=== PATIENT | female | born 1950 | race Caucasian/White ===

== ENCOUNTER 2019-06-23 11:51 | Outpatient (CLI) | payer MEDICARE, SELFPAY ==
--- NOTE | ~2019-06-23 | NM_ITS ---
EXAMINATION: NM parathyroid imaging w spect DATE: 06/23/2019 15:47 INDICATION: Endocrine disorder, unspecified. TECHNIQUE: 19.6 mCi Tc99m sestamibi was administered intravenously. Anterior images of the neck were obtained immediately and at 2 hours. SPECT images of the neck were obtained. COMPARISON: Parathyroid scintigraphy 12/11/2016 FINDINGS: There is no focus of persistent activity in the area of the thyroid or mediastinum to sugge st parathyroid adenoma. IMPRESSION: 1. No evidence of a parathyroid adenoma. Reviewed, dictated and finalized at location A. ER DOWN
== END 2019-06-23 11:52 | disposition home or self-care (01) ==
LOC: ANHIMG 12:01
PROVIDERS: PCP Family Medicine; Visit Provider Family Medicine
DX: E34.9 Endocrine disorder, unspecified (principal)
CPT/HCPCS: 78071; A9500

== ENCOUNTER 2019-11-17 12:47 | Outpatient (CLI) | payer MEDICARE, SELFPAY ==
[2019-11-17 13:17] LABS: Basophils Percent Auto 0.5 % (0.2-1.2); Eosinophils Absolute Auto 0.3 K/mm3 (0-0.3); Eosinophils Percent Auto 3.2 % (0-4.4); Hematocrit 41.2 % (37.0-47.0); Hemoglobin 13.1 g/dL (12.0-15.0); Immature Granulocyte Absolute 0.02 K/mm3 (0.00-0.031); Immature Granulocyte Percent A 0.3 % (0-0.5); Lymphocytes Absolute Auto 1.89 K/mm3 (0.9-3.2); Lymphocytes Percent Auto 23.8 % (18.3-44.2); Mean Corpuscular HGB Conc 31.8 g/dl (32-36); Mean Corpuscular Hemoglobin 29.5 pg (26-34); Mean Corpuscular Volume 92.8 fl (80-100); Mean Platelet Volume 8.4 fl (7.4-10.4); Monocytes Absolute Auto 0.7 K/mm3 (0.1-0.6); Monocytes Percent Auto 9.2 % (2.6-8.5); Platelet Count Result 160 k/mm3 (150-375); Red Blood Count 4.44 M/mm3 (4.2-5.4); Red Cell Distribution Width 12.4 % (11.5-14.5); White Blood Count 7.9 K/mm3 (4.5-10.0)
[2019-11-17 14:54] LABS: Alanine Aminotransferase 29 U/L (4-35); Albumin Level 4.5 g/dL (3.5-5.1); Alkaline Phosphatase 133 U/L (38-126); Aspartate Amino Transferase 28 U/L (14-36); Bilirubin,Total 0.6 mg/dL (0.2-1.3); Blood Urea Nitrogen 28 mg/dL (7-17); Calcium 10.4 mg/dL (8.4-10.2); Carbon Dioxide 27 mmol/L (22-30); Chloride 102 mmol/L (98-107); Estimated Glomerular Filt Rate 49; Glucose 88 mg/dL (65-105); Potassium 4.4 mmol/L (3.4-5.0); Sodium 138 mmol/L (137-145)
[2019-11-17 15:05] LABS: Parathyroid Intact 128.2 pg/mL (7.5-53.5)
== END 2019-11-17 12:48 | disposition home or self-care (01) ==
LOC: ANHLAB 13:05
PROVIDERS: PCP Family Medicine; Visit Provider Internal Medicine Hematology & Oncology
DX: E83.52 Hypercalcemia (principal)
CPT/HCPCS: 36415; 80053; 83970; 85025

== ENCOUNTER 2020-09-14 14:39 | Outpatient (CLI) | payer MEDICARE, SELFPAY ==
--- NOTE | ~2020-09-14 | MM_ITS ---
EXAMINATION: MM screening isabela LT w jenise HISTORY: Screening TECHNIQUE: Craniocaudal and mediolateral oblique 3-D tomosynthesis images were obtained and synthetic 2-D images were generated. CAD analysis was submitted and interpreted. COMPARISON: Comparison to multiple prior studies sequentially, with oldest reviewed study dated 02/11. BREAST PARENCHYMAL COMPOSITION: There are scattered areas of fibroglandular density. FINDINGS: There is no evidence of suspicious mass, calcification, or architectural distortion to sugg est malignancy in the left breast. There has been no suspicious interval change. IMPRESSION: 1. No mammographic evidence of malignancy. 2. Recommend routine screening mammography in one year. BI-RADS Category 1: Negative Reviewed, dictated and finalized at location A.
== END 2020-09-14 14:40 | disposition home or self-care (01) ==
PROVIDERS: PCP Family Medicine; Visit Provider Family Medicine
DX: Z12.31 Encounter for screening mammogram for malignant neoplasm of breast (principal)
CPT/HCPCS: 77063; 77067

== ENCOUNTER 2020-11-20 12:31 | Emergency (ER) | payer MEDICARE, SELFPAY ==
[2020-11-20 12:47] VITALS: BP 157/94; PULSE 89; RESP 16; TEMP 37.1; O2SAT 99
--- NOTE | 2020-11-20 13:01 | ED.SKABFB ---
HPI - Skin/Abscess/Foreign Bdy General Chief complaint: Wound/Laceration Stated complaint: Laceration on left thumb Time Seen by Provider: 11/20/20 12:55 Source: patient and RN notes reviewed Mode of arrival: ambulatory Limitations: no limitations History of Present Illness HPI narrative: Patient presents today with a laceration to her left thumb that was sustained approximately 30 minutes prior to arrival while she was cutting a watermelon. Denies numbness or tingling. She has tried no [id number] interventions prior to arrival. She is not up-to-date on her tetanus vaccine. complaint: laceration Related Data Home Medications Medication Instructions Recorded Confirmed aspirin 81 mg tablet,delayed 81 mg PO DAILY 06/11/19 11/20/20 release atorvastatin 40 mg tablet 80 mg PO DAILY 06/11/19 11/20/20 famotidine 20 mg tablet 20 mg PO BID tablet 06/11/19 11/20/20 metoprolol succinate 50 mg 50 mg PO DAILY 06/11/19 11/20/20 tablet,extended release 24 hr Allergies Allergy/AdvReac Type Severity Reaction Status Date / Time red dye Allergy Intermediate Unknown Verified 11/20/20 13:15 strawberry Allergy Mild Unknown Verified 11/20/20 13:15 heparin Allergy Other Verified 11/20/20 14:19 Review of Systems Review of Systems: Narrative: CONSTITUTIONAL: Denies body aches, fever, chills, or sweats. EYES: Denies visual changes, redness, or discharge. ENT: Denies rhinorrhea, congestion, sore throat, or otalgia. CARDIOVASCULAR: Denies chest pain, palpitations, or edema. RESPIRATORY: Denies cough or dyspnea. GASTROINTESTINAL: Denies abdominal pain, nausea, vomiting, or diarrhea. GENITOURINARY: Denies dysuria or hematuria. SKIN: Denies rash, itching, or wounds.+Laceration to left thumb. MUSCULOSKELETAL: Denies back pain, joint pain, or myalgia. NEUROLOGIC: Denies headache, numbness, tingling, or weakness. PSYCH: Denies depression or anxiety. [facility] Past Medical History Medical History (Updated 11/20/20 @ 13:24 by Mary Groves, BLANKET MAKER, ) Atherosclerosis of coronary artery bypass graft of [place] heart without angina pectoris Atrial fibrillation BMI 45.0-49.9, adult Chronic kidney disease, stage 3 (moderate) Diastolic dysfunction Elevated parathyroid hormone Essential (primary) hypertension History of breast cancer Hypercalcemia Iron deficiency anemia due to chronic blood loss Obstructive sleep apnea (adult) (pediatric) Vitamin D deficiency Surgical History Surgical History (Updated 11/20/20 @ 13:03 by Mary Groves, BLANKET MAKER, ) History of right mastectomy S/P AVR (aortic valve replacement) Family History Family History Father Family history of premature coronary heart disease Hypertension Family history of pancreatic cancer Sibling Family history of coronary artery disease Acute myocardial infarction Mother Family history of coronary artery disease Other Cerebrovascular accident Depression Diabetes mellitus Family history of Alzheimer's disease Family history of arthritis Family history of malignant neoplasm Family history of obesity Family history of seizure disorder Social History Social History Second hand tobacco smoke exposure: No Alcohol intake: never Comments At time of signature, I have reviewed and agree with nursing past medical, surgical, social and family history unless otherwise noted. Please see nursing chart for further information. There is no relevant family history pertinent to the presenting complaint Exam Narrative: Exam Narrative: GENERAL: Well-appearing, well-nourished, and in no acute distress. HEAD: Normocephalic, atraumatic. EYES: EOMI. No redness or drainage. Conjunctivae normal. ENT: Mucous membranes pink and moist. NECK: Normal AROM. CHEST: No respiratory distress. EXTREMITIES: Normal rang
[2020-11-20] MEDS: TETANUS/DIPHTHERIA TOXOIDS ADSORB 0.5 ML VIAL (*BKC) IM (13:03)
== END 2020-11-20 13:32 | disposition home or self-care (01) ==
PROVIDERS: Emergency Provider Nurse Practitioner; PCP Family Medicine
DX: S61.012A Laceration without foreign body of left thumb without damage to nail, initial encounter (principal); W45.8XXA Other foreign body or object entering through skin, initial encounter; Z23 Encounter for immunization; I48.91 Unspecified atrial fibrillation; I13.10 Hypertensive heart and chronic kidney disease without heart failure, with stage 1 through stage 4 chronic kidney disease, or unspecified chronic kidney disease; N18.30 Chronic kidney disease, stage 3 unspecified; I25.110 Atherosclerotic heart disease of native coronary artery with unstable angina pectoris; Z85.3 Personal history of malignant neoplasm of breast; D50.9 Iron deficiency anemia, unspecified; G47.33 Obstructive sleep apnea (adult) (pediatric)
CPT/HCPCS: 12001; 90471; 90714; 99212; G0463

== ENCOUNTER 2022-02-20 09:02 | Outpatient (CLI) | payer MEDICARE, SELFPAY ==
--- NOTE | ~2022-02-20 | MM_ITS ---
EXAMINATION: MM screening isabela LT w jenise HISTORY: Screening TECHNIQUE: Craniocaudal and mediolateral oblique 3-D tomosynthesis images were obtained and synthetic 2-D images were generated. CAD analysis was submitted and interpreted. COMPARISON: Comparison to multiple prior studies sequentially, with oldest reviewed study dated 08/2014. BREAST PARENCHYMAL COMPOSITION: The breasts are almost entirely fatty. FINDINGS: There is no evidence of suspicious mass, calcification, or architectural distortion to sugg est malignancy in the left breast. There has been no suspicious interval change. IMPRESSION: 1. No mammographic evidence of malignancy. 2. Recommend routine screening mammography in one year. BI-RADS Category 1: Negative Reviewed, dictated and finalized at location A.
== END 2022-02-20 09:03 | disposition home or self-care (01) ==
LOC: ANHIMG 09:05
PROVIDERS: PCP Family Medicine; Visit Provider Nurse Practitioner Family
DX: Z12.31 Encounter for screening mammogram for malignant neoplasm of breast (principal)
CPT/HCPCS: 77063; 77067

== ENCOUNTER 2022-06-27 10:49 | Emergency (ER) | payer MEDICARE, SELFPAY ==
--- NOTE | ~2022-06-27 | CT_ITS ---
EXAMINATION: CT brain wo con DATE: 06/27/2022 12:04 INDICATION: Head injury. TECHNIQUE: Computed tomography (CT) of the head was performed without intravenous contrast. The mA wa s adjusted according to patient size. Iterative reconstruction technique was employed. The dose-lengt h product was 605.33 mGy-cm. COMPARISON: Head CT 12/09/2018 FINDINGS: There are scattered areas of low attenuation in the cerebral white matter. There is no intr acranial hemorrhage, acute infarction, or abnormal intracranial mass lesion. The ventricles are santiago l in size. There are likely changes of ocular lens replacement surgeries. There is mild mucosal thick ening in the paranasal sinuses. The mastoid air cells are normal. There is right periorbital soft tis jameson swelling. IMPRESSION: 1. Stable extensive nonspecific cerebral white matter disease, which likely represents chronic small vessel ischemic disease. Reviewed, dictated and finalized at location A. HER HAND IMPRESSION: 1. Stable extensive nonspecific cerebral white matter disease, which likely rep resents chronic small vessel ischemic disease.
--- NOTE | ~2022-06-27 | CT_ITS ---
EXAMINATION: CT facial & cervical spine wo DATE: 06/27/2022 12:04 INDICATION: Head injury. TECHNIQUE: Computed tomography (CT) of the maxillofacial region and cervical spine was performed with out intravenous contrast. Automated exposure control and iterative reconstruction technique were empl oyed. The dose-length product was 496.81 mGy-cm. COMPARISON: Maxillofacial CT 12/09/2018 FINDINGS: MAXILLOFACIAL CT: There is right periorbital soft tissue swelling. There are likely changes of ocular lens replacement surgeries. There is leftward deviation of the nasal septum. There are old fractures of the nasal bone s. Material in the external auditory canals is likely cerumen. CERVICAL SPINE CT: There is 6 degrees levocurvature of cervical spine. Vertebral body heights are normal. There is mildl y decreased disc height at C3-C4 and severely decreased disc height from C4-C5 through T1-T2. The fol lowing disc levels are specifically discussed: C2-C3: There is no uncovertebral joint osteoarthritis. There is mild right and moderate left facet junaid int osteoarthritis. There is mild left neural foraminal stenosis. There is no central canal stenosis. C3-C4: There is moderate right and mild left uncovertebral joint osteoarthritis. There is mild right and moderate left facet joint osteoarthritis. There is mild bilateral neural foraminal stenosis. Ther e is mild central canal stenosis. C4-C5: There is severe bilateral uncovertebral joint osteoarthritis. There is mild bilateral facet junaid int osteoarthritis. There is mild right and moderate left neural foraminal stenosis. There is mild ce ntral canal stenosis. C5-C6: There is severe bilateral uncovertebral joint osteoarthritis. There is mild bilateral facet junaid int osteoarthritis. There is mild bilateral neural foraminal stenosis. There is mild central canal st enosis. C6-C7: There is severe bilateral uncovertebral joint osteoarthritis. There is moderate bilateral face t joint osteoarthritis. There is mild bilateral neural foraminal stenosis. There is mild central victorina l stenosis. C7-T1: There is severe bilateral uncovertebral joint osteoarthritis. There is severe bilateral facet joint osteoarthritis. There is mild bilateral neural foraminal stenosis. There is mild central canal stenosis. IMPRESSION: 1. No acute fracture. 2. Severe cervical spondylosis. Reviewed, dictated and finalized at location A. RAL SUPPLY CLERK
[2022-06-27 11:01] VITALS: BP 183/72; PULSE 81; RESP 18; TEMP 36.4; O2SAT 100
--- NOTE | 2022-06-27 11:51 | ED.HEATRA ---
HPI - Head Injury General Chief complaint: Wound/Laceration Stated complaint: fall, head lac Time Seen by Provider: 06/27/22 11:36 Source: patient Mode of arrival: ambulatory Limitations: no limitations History of Present Illness HPI Narrative: This is a 72 year old female that presents to the ER after a head injury today. Reports she had spilled some milk and slipped on it. She fell forward and hit her head. She did not lose consciousness. Reports this happened around 10 this morning. She does have a small laceration over the right temporal region. Reports she is up-to-date on tetanus. Denies any other focal injury or areas of pain. Denies visual changes, vomiting, decreased range of motion or numbness. Related Data Home Medications Medication Instructions Recorded Confirmed aspirin 81 mg tablet,delayed 81 mg PO DAILY 06/11/19 12/15/21 release (Adult Low Dose Aspirin) atorvastatin 40 mg tablet 80 mg PO DAILY 06/11/19 12/15/21 amlodipine 5 mg tablet 5 mg PO DAILY 03/07/21 12/15/21 L.acidoph, paracasei,B. lactis 10 See Rx Instructions PO .QD 12/15/21 12/15/21 billion cell capsule (Digestive Advantage Advanced Probiotic) Allergies Allergy/AdvReac Type Severity Reaction Status Date / Time red dye Allergy Intermediate Unknown Verified 06/27/22 11:32 strawberry Allergy Mild Unknown Verified 06/27/22 11:32 heparin Allergy Other Verified 06/27/22 11:32 Review of Systems Review of Systems: CONSTITUTIONAL: Denies fever EYES: Denies visual changes GASTROINTESTINAL: Denies vomiting SKIN: Reports laceration MUSCULOSKELETAL: Denies back pain, joint pain, or myalgia. NEUROLOGIC: Denies numbness, or weakness. All systems reviewed & are unremarkable except as noted in HPI and below [facility] Past Medical History Medical History (Updated 06/27/22 @ 13:18 by Arielle Mtz PA-C) Atherosclerosis of coronary artery bypass graft of [place] heart without angina pectoris Atrial fibrillation BMI 31.0-31.9,adult BMI 45.0-49.9, adult BMI greater than 40 Chronic kidney disease, stage 3 (moderate) Diastolic dysfunction Elevated parathyroid hormone Essential (primary) hypertension History of breast cancer Hypercalcemia Iron deficiency anemia due to chronic blood loss Laceration of left thumb Need for prophylactic antibiotic Obstructive sleep apnea (adult) (pediatric) Traumatic ecchymosis of left knee Vitamin D deficiency Surgical History Surgical History (Updated 12/15/21 @ 11:44 by Rigoberto Robles MD) Aortic valve replaced History of right mastectomy S/P AVR (aortic valve replacement) Family History Family History Father Family history of premature coronary heart disease Hypertension Family history of pancreatic cancer Sibling Family history of coronary artery disease Acute myocardial infarction Mother Family history of coronary artery disease Sibling Erich syndrome Depression Hypertension Other Cerebrovascular accident Diabetes mellitus Family history of Alzheimer's disease Family history of arthritis Family history of malignant neoplasm Family history of obesity Family history of seizure disorder Social History Social History Smoking status: Never smoker Second hand tobacco smoke exposure: Yes Alcohol intake: current Substance use: never Substance use type: does not use Living arrangements: with family Occupation/Education: retired Additional occupation/education comments: accounting Gender identity (if verbalized by the patient): Female Exam Narrative: GENERAL: Well-appearing, well-nourished, and in no acute distress. HEAD: Normocephalic. 1 cm irregular laceration in the right temporal region that is fairly superficial EYES: PERRLA and EOMI. ENT: Nares clear, no rhinorrhea or epistaxis. Mucous membranes m
== END 2022-06-27 13:47 | disposition home or self-care (01) ==
PROVIDERS: Emergency Provider Physician Assistant; PCP Family Medicine
DX: S01.81XA Laceration without foreign body of other part of head, initial encounter (principal); I25.10 Atherosclerotic heart disease of native coronary artery without angina pectoris; I48.91 Unspecified atrial fibrillation; I12.9 Hypertensive chronic kidney disease with stage 1 through stage 4 chronic kidney disease, or unspecified chronic kidney disease; N18.30 Chronic kidney disease, stage 3 unspecified; E55.9 Vitamin D deficiency, unspecified; G47.33 Obstructive sleep apnea (adult) (pediatric); Z95.2 Presence of prosthetic heart valve; Z90.11 Acquired absence of right breast and nipple; Z85.3 Personal history of malignant neoplasm of breast; R90.82 White matter disease, unspecified; M47.812 Spondylosis without myelopathy or radiculopathy, cervical region; Z79.82 Long term (current) use of aspirin; W01.0XXA Fall on same level from slipping, tripping and stumbling without subsequent striking against object, initial encounter
CPT/HCPCS: 12011; 70450; 70486; 72125; 99284

== ENCOUNTER 2023-03-01 09:24 | Outpatient (CLI) | payer MEDICARE, SELFPAY ==
[2023-03-01 10:20] LABS: Anion Gap 8 mmol/L (8-16); Blood Urea Nitrogen 34 mg/dL (7-17); Calcium 10.6 mg/dL (8.4-10.2); Carbon Dioxide 26 mmol/L (22-30); Chloride 105 mmol/L (98-107); Estimated Glomerular Filt Rate 34; Glucose 93 mg/dL (65-110); Potassium 4.4 mmol/L (3.4-5.0); Sodium 139 mmol/L (137-145)
== END 2023-03-01 09:25 | disposition home or self-care (01) ==
PROVIDERS: PCP Family Medicine; Visit Provider Family Medicine
DX: N18.30 Chronic kidney disease, stage 3 unspecified (principal)
CPT/HCPCS: 36415; 80048

== ENCOUNTER 2023-07-25 09:14 | Outpatient (CLI) | payer MEDICARE, SELFPAY ==
--- NOTE | ~2023-07-25 | MM_ITS ---
EXAMINATION: MM screening isabela LT w jenise HISTORY: Screening mammogram; history of right mastectomy in 2019 TECHNIQUE: Craniocaudal and mediolateral oblique 3-D tomosynthesis images were obtained and synthetic 2-D images were generated. CAD analysis was submitted and interpreted. COMPARISON: 02/20/2022, 09/2020, 05/21/2018 left screening mammogram. BREAST PARENCHYMAL COMPOSITION: There are scattered areas of fibroglandular density. FINDINGS: History of 2020 right mastectomy. Multiple scattered benign calcifications are again presen t. There is no evidence of suspicious mass, calcification, or architectural distortion to suggest mal ignancy in either breast. There has been no suspicious interval change. IMPRESSION: 1. No mammographic evidence of malignancy. 2. Recommend routine screening mammography in one year. BI-RADS Category 2: Benign finding(s). Reviewed, dictated and finalized at location A.
== END 2023-07-25 09:15 | disposition home or self-care (01) ==
LOC: ANHIMG 09:18
PROVIDERS: PCP Family Medicine; Visit Provider Obstetrics & Gynecology
DX: Z12.31 Encounter for screening mammogram for malignant neoplasm of breast (principal)
CPT/HCPCS: 77063; 77067

== ENCOUNTER 2024-08-07 07:58 | Outpatient (CLI) | payer MEDICARE, SELFPAY ==
--- NOTE | ~2024-08-07 | MM_ITS ---
EXAMINATION: MM screening isabela LT w jenise HISTORY: Screening. Personal history of right-sided breast cancer post mastectomy more than 20 years earlier. TECHNIQUE: Craniocaudal and mediolateral oblique 3-D tomosynthesis images were obtained and synthetic 2-D images were generated. CAD analysis was submitted and interpreted. COMPARISON: 07/25/2023 and dating back to 06/05/2019 BREAST PARENCHYMAL COMPOSITION: There are scattered areas of fibroglandular density. FINDINGS: Punctate calcifications are detected bilaterally, stable and benign in appearance. Redemonstration of a intramammary lymph node within the upper outer posterior third of the left breas t. Stable parenchymal pattern without suspicious microcalcifications, architectural distortion or discre te masses. IMPRESSION: 1. No mammographic evidence of malignancy. 2. Recommend routine screening mammography in one year. BI-RADS Category 2: Benign finding(s). Reviewed, dictated and finalized at location A.
== END 2024-08-07 07:59 | disposition home or self-care (01) ==
LOC: ANHIMG 07:59
PROVIDERS: PCP Family Medicine; Visit Provider Obstetrics & Gynecology
DX: Z12.31 Encounter for screening mammogram for malignant neoplasm of breast (principal)
CPT/HCPCS: 77063; 77067

== ENCOUNTER 2024-10-11 09:38 | Outpatient (CLI) | payer MEDICARE, SELFPAY ==
--- NOTE | ~2024-10-11 | US_ITS ---
US renal BI 10/11/2024 10:25 Procedure: Realtime transabdominal ultrasound of the kidneys and bladder. Indication: Chronic kidney disease Comparison: Ultrasound dated 11/06/2013 Findings: There is mild bilateral renal atrophy with increased renal cortical echotexture and decreas ed corticomedullary differentiation, compatible with chronic renal disease. No hydronephrosis or mass identified. The right kidney measures 9.6 cm and left kidney measures 10.1 cm. Bladder within santiago l limits. Impression: 1: Renal atrophy with increased cortical echotexture, consistent with chronic renal disease. Reviewed, dictated and finalized at location A. Impression: 1: Renal atrophy with increased cortical echotexture, consistent with chronic r enal disease.
== END 2024-10-11 09:39 | disposition home or self-care (01) ==
PROVIDERS: PCP Family Medicine; Visit Provider Internal Medicine Nephrology
DX: I12.9 Hypertensive chronic kidney disease with stage 1 through stage 4 chronic kidney disease, or unspecified chronic kidney disease (principal); N18.4 Chronic kidney disease, stage 4 (severe)
CPT/HCPCS: 76775

== ENCOUNTER 2024-12-31 20:21 | Emergency (ER) | payer MEDICARE, SELFPAY ==
[2024-12-31 20:35] VITALS: BP 157/79; PULSE 65; RESP 20; TEMP 36.2; O2SAT 100
--- NOTE | 2024-12-31 21:05 | ED.DENTAL ---
HPI - Dental/Oral General Chief complaint: Dental/Oral Stated complaint: Continued bleeding after 2 teeth extracted Time Seen by Provider: 12/31/24 20:55 Source: patient and family Mode of arrival: ambulatory Limitations: no limitations History of Present Illness HPI Narrative: 34-year-old with history of hypertension , had a dental extraction this afternoon, continues to have bleeding from the socket patient states that she used to the back for short period of time still continued to bleed. She is not on any anticoagulant. Onset (ago): hour(s) (2) Duration: constant Severity: mild Relieving factors: nothing Exacerbating factors: nothing Context: other (Dental extraction) Treatment prior to arrival: none Related Data Home Medications ?Medication ?Instructions ?Recorded ?Confirmed ?Last Taken ?Type aspirin 81 mg tablet,delayed 81 mg PO DAILY 06/11/19 11/27/24 Unknown History release (Adult Low Dose Aspirin) amlodipine 5 mg tablet 5 mg PO DAILY 03/07/21 11/27/24 Unknown History L.acidoph,paracasei,B.animalis 10 See Rx Instructions PO .QD 12/15/21 11/27/24 Unknown History billion cell capsule (Digestive Advantage Advanced Probiotic) ascorbate calcium (vitamin C) 500 500 mg PO DAILY 07/07/22 11/27/24 Unknown History mg tablet metoprolol succinate 50 mg 100 mg PO DAILY 07/10/23 11/27/24 Unknown History tablet,extended release 24 hr (Toprol XL) atorvastatin 80 mg tablet (Lipitor) 80 mg PO DAILY 09/24/24 11/27/24 Unknown History cetirizine 10 mg tablet (24Hour 10 mg PO DAILY PRN 09/24/24 11/27/24 Unknown History Allergy) cholecalciferol (vitamin D3) 50 100 mcg PO DAILY 09/24/24 11/27/24 Unknown History mcg (2,000 unit) capsule Allergies Allergy/AdvReac Type Severity Reaction Status Date / Time ezetimibe (From Zetia) Allergy Intermediate Rash Verified 12/31/24 20:44 red dye Allergy Intermediate Unknown Verified 12/31/24 20:44 strawberry Allergy Mild Unknown Verified 12/31/24 20:44 heparin Allergy Other Verified 12/31/24 20:44 Review of Systems Review of Systems: All systems reviewed & are unremarkable except as noted in HPI and below Constitutional: Constitutional: Reports no additional constitutional complaints Eyes: Eyes: Reports no additional eye complaints ENT: Reports as per HPI Cardiovascular: Cardiovascular: Reports no additional cardiovascular complaints Respiratory: Respiratory: Reports no additional respiratory complaints Musculoskeletal: Musculoskeletal: Reports no additional musculoskeletal complaints Integumentary/Breasts: Skin/Breast: Reports system reviewed and no additional complaints, except as docu [facility] Past Medical History Medical History BMI 50.0-59.9, adult Need for prophylactic antibiotic Hypercalcemia Laceration of left thumb Traumatic ecchymosis of left knee History of breast cancer Atherosclerosis of coronary artery 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 Elevated parathyroid hormone Atrial fibrillation Chronic kidney disease, stage 3 (moderate) Diastolic dysfunction Endometrial cancer Essential (primary) hypertension Iron deficiency anemia due to chronic blood loss Obstructive sleep apnea (adult) (pediatric) Vitamin D deficiency Surgical History Surgical History History of hysteroscopy (02/15/17) Postmenopausal bleeding, Endometrial Hypertrophy - adenocarinoma, endometriod Status post right knee replacement (12/03/13) Delivery by section (~1980) Delivery by section (~1977) H/O bilateral salpingo-oophorectomy (04/10/17) H/O: hysterectomy (04/10/17) endometrioid adenocarcinoma Aortic valve replaced History of right mastectomy (~2000) S/P AVR (aortic valve replacement) Family History Family History Father Family history of premature coronary heart disease Hypertension Family history of pancreatic cancer Sibling Family history of coronary artery disease Acute myocardial infarction Lung cancer Mother Family history of coronary artery disease Sibling Erich syndrome Depression Hypertension Other Cerebrovascular accident Diabetes mellitus Family history of Alzheimer's disease Family history of arthritis Family history of malignant neoplasm Family history of obesity Family history of seizure disorder Social History Social History Smoking status: Never smoker Second hand tobacco smoke exposure: No Alcohol intake: never Substance use: never Substance use type: does not use Do You Feel Safe in your Home?: Yes Lack of Transportation: No Lack of Food: Never True Current Housing: I Have Housing Concerned About Future Housing: No Difficulty Paying Gas/Electric Bills: No Difficulty Paying for Meds: No Currently Unemployed: No Education: High School Diploma/GED Difficulty w/ Childcare or Family Care: No Living arrangements: with family Additional living arrangements comments: Occupation/Education: retired Additional occupation/education comments: accounting Gender identity (if verbalized by the patient): Female Sexual Orientation (if Verbalized by the Patient): Straight or Heterosexual Exam Narrative: GENERAL: Well-appearing, well-nourished, and in no acute distress. HEAD: Normocephalic, atraumatic. EYES: PERRLA and EOMI. ENT: Nares clear, no rhinorrhea or epistaxis. Mucous membranes moist. has very minimal blood in the #30 and 31 NECK: Supple. CHEST: Clear to auscultation. No respiratory distress. HEART: Regular rate and rhythm. No murmur heard. Normal peripheral pulses. EXTREMITIES: Normal range of motion. No edema. SKIN: Warm, dry, no rash. NEURO: No focal deficits. Alert and oriented x3. PSYCH: Normal mood and affect. Course Course Emergency Course: i did pack her socket with TXA .observed for some time , no active bleeding. she does feel comfortable going home. Vital Signs Vital signs: Vital Signs Temperature 36.2 C L 12/31/24 20:35 Pulse Rate 65 12/31/24 20:35 Respiratory Rate 20 12/31/24 20:35 Blood Pressure 157/79 H 12/31/24 20:35 Pulse Oximetry 100 12/31/24 20:35 Oxygen Delivery Room Air 12/31/24 20:35 Temperature 36.2 C L 12/31/24 20:35 Pulse Rate 65 12/31/24 20:35 Respiratory Rate 20 12/31/24 20:35 Blood Pressure 157/79 H 12/31/24 20:35 Pulse Oximetry 100 12/31/24 20:35 Oxygen Delivery Room Air 12/31/24 20:35 Discharge Plan Discharge Clinical Impression: History of recent dental procedure Patient Disposition: Home Condition: Stable Instructions: Antibiotic Form Patient Language: Upper Sorbian Prescriptions: No Action amlodipine 5 mg tablet 5 mg PO DAILY atorvastatin [Lipitor] 80 mg tablet 80 mg PO DAILY cetirizine [24Hour Allergy] 10 mg tablet 10 mg PO DAILY PRN aspirin [Adult Low Dose Aspirin] 81 mg tablet,delayed release (DR/EC) 81 mg PO DAILY Digestive Advantage Advanced 10 billion cell capsule See Rx Instructions PO .QD Rx Instructions: 1 capsule orally QD; ascorbate calcium (vitamin C) 500 mg tablet 500 mg PO DAILY cholecalciferol (vitamin D3) 50 mcg (2,000 unit) capsule 100 mcg PO DAILY metoprolol succinate [Toprol XL] 50 mg tablet extended release 24 hr 100 mg PO DAILY Follow-up/Referrals: Rigoberto Robles MD [Primary Care Provider, [facility]] Time of Disposition: 21:38
== END 2024-12-31 22:00 | disposition home or self-care (01) ==
LOC: ANHED 21:27
PROVIDERS: Emergency Provider Family Medicine; PCP Family Medicine
DX: K91.840 Postprocedural hemorrhage of a digestive system organ or structure following a digestive system procedure (principal); Z85.3 Personal history of malignant neoplasm of breast; I48.91 Unspecified atrial fibrillation; N18.30 Chronic kidney disease, stage 3 unspecified; Z85.42 Personal history of malignant neoplasm of other parts of uterus; I12.9 Hypertensive chronic kidney disease with stage 1 through stage 4 chronic kidney disease, or unspecified chronic kidney disease; G47.33 Obstructive sleep apnea (adult) (pediatric); E55.9 Vitamin D deficiency, unspecified; Z95.2 Presence of prosthetic heart valve; Z96.651 Presence of right artificial knee joint; Z90.11 Acquired absence of right breast and nipple
CPT/HCPCS: 99283

== ENCOUNTER 2025-01-13 13:04 | Emergency (ER) | payer MEDICARE, SELFPAY ==
--- OUTSIDE RECORDS SUMMARY | 2007-06-22 04:02 | XMS_ITS | Continuity of Care Document ---
Author Organization [facility] Address [address] [place] [address] [address] [place] [address] Phone Care Team Providers Care Community Affairs Manager Name Role Phone Jj OD, Finn Unavailable Unavailable Procedures Procedure Date Eye Exam & Treatment Refraction Advance Directives Directive Yes / No Effective Date File Name No Information Encounters Encounter Description Practice Location Reason(s) For Visit Diagnoses Date Provider Providers Copied on Encounter [facility], [address] [place] [address] [address], [place], [place], [id number], [place] tel:[phone] [facility] No Information 9-200 8 Jj OD Finn. [address] , [address], [place], [address], [place]. tel:[phone] Family History Family Member Type Diagnosis Age At Onset No Information Payers Payer name Insurance type Covered constitution party ID Authoriza tion(s) No Information Social History Type Description Quantity Date Captured Comments Sex Female Smoking Status No Information Chief Complaint And Reason For Visit No Information Reason For Referral Reason For Referral No Information History Of Present Illness Encounter Date Complaint History Of Prese nt Illness No Information Functional Status Date Functional Assessmen t No Information Instructions Date Instruction Additional Infor mation No Information Assessments Type Assessment Date No Information Patient Care Teams Name Effective Dates (start - stop) Status Members No Information
--- OUTSIDE RECORDS SUMMARY | 2007-06-22 04:02 | XMS_ITS | Continuity of Care Document ---
Author Organization [facility] Address [id number] [place] [address] [address] [place] [address] Phone Care Team Providers Care Continuous Improvement Black Belt Name Role Phone Jj OD, Finn Unavailable Unavailable Procedures Procedure Date Eye Exam & Treatment Refraction Advance Directives Directive Yes / No Effective Date File Name No Information Encounters Encounter Description Practice Location Reason(s) For Visit Diagnoses Date Provider Providers Copied on Encounter [facility], [address] [place] [address] [address], [place], [place], [id number], [place] tel:[phone] [facility] No Information 9-200 8 Jj OD Finn. [address] , [address], [place], [address], [place]. tel:[phone] Family History Family Member Type Diagnosis Age At Onset No Information Payers Payer name Insurance type Covered republican ID Authoriza tion(s) No Information Social History [...]
[2025-01-13] VITALS (7 sets, daily range): BP systolic 152–197; BP diastolic 69–97; PULSE 60–98; RESP 13–24; TEMP 36.9–37.1; O2SAT 98–100
--- NOTE | ~2025-01-13 | CT_ITS ---
EXAMINATION: CT BRAIN W/O DATE: 01/13/2025 17:34 INDICATION: Dizziness. Diplopia. TECHNIQUE: Computed tomography (CT) of the head was performed without intravenous contrast. The dose-length product was 605.33 mGy-cm. Automated exposure control and iterative reconstruction technique were employed. COMPARISON: No prior studies for comparison. FINDINGS: Normal brain parenchymal volume for age. Normal [place] differentiation. No acute intracranial hemorrhage, infarction, mass or mass effect. There are scattered severe periventricular and subcortical white matter changes, most likely related to small vessel ischemic disease (microangiopathy). No ventriculomegaly or midline shift. Midline sagittal images demonstrate a normal corpus callosum, craniovertebral junction and sella turcica. Basilar cisterns are patent. Paranasal sinuses and mastoids are pneumatized. No depressed skull fractures. IMPRESSION: 1. No acute intracranial abnormality. Reviewed, dictated and finalized at location O.
--- OUTSIDE RECORDS SUMMARY | 2025-01-13 13:18 | XMS_ITS | Encounter Summary ---
Author Organization [facility] Address [address] [place] [address] Phone Care Team Providers Care Sprayer Operator Name Role Phone Rigoberto Robles MD Primary Care Provider Karla Marx MD Unavailable Jeffrey Skinner MD Unavailable [phone] Marlo Joyce MD Unavailable [phone] Encounter Details Date Type Department Care Team (Latest Contact Info) Description 06/12/2016 Orders Only [facility] Scanning, Provider Social History Tobacco Use Types Packs/Day Years Used Date Smoking Tobacco: Never Assessed Comments Unknown Sex and Gender Information Value Date Recorded Sex Assigned at Not on file Legal Sex Female 10:29 PM [employer] Gender Identity Not on file Sexual Orientation Not on file documented as of this encounter Plan of Treatment Not on file documented as of this encounter Procedures Procedure Name Priority Date/Time Associated Diagnosis Comments GI - RESULT 06/12/2016 SCAN - RADIOLOGY/IMAGING 06/12/2016 documented in this encounter Results * GI - RESULT (06/12/2016) Anatomical Region Laterality Modality Other us Provider Scanning Final Result * SCAN - RADIOLOGY/IMAGING (06/12/2016) Anatomical Region Laterality Modality Other us Provider Scanning Edited Result - Final documented in this encounter Visit Diagnoses Not on filedocumented in this encounter Care Teams Sprayer Operator Relationship Specialty Start Date End Date Rigoberto Robles MD PCP - General 05/09/07 Karla Marx MD Referring Physician Cardiology 03/07/18 Jeffrey Skinner MD [address] [place] [address] Referring Physician Obstetrics and Gynecology 07/19/20 Marlo Joyce MD [id number] [place] [address] Surgeon Cardiothoracic Surgery 07/19/20 documented as of this encounter
--- OUTSIDE RECORDS SUMMARY | 2025-01-13 13:18 | XMS_ITS ---
Author Organization [facility] Address [address] [place] [address] Care Team Providers Care Tile Trimmer Name Role Phone Rigoberto Robles MD Primary Care Provider Kalra Marx MD Unavailable [phone] Jeffrey Skinner MD Unavailable [phone] Marlo Joyce MD Unavailable Active Problems Problem Noted Date Diagnosed Date Hx of CABG 10/15/2023 Pacemaker 01/04/2023 Overview (10/04/2023): Medtronic [place] Dual Pacemaker Dx; SSS, Afib, CHB. DOI 06/28/18 Dr. Wyatt Salvador [facility]. Office pacer checks yearly. Carelink remotes Q3 months. Assessment & Plan (01/04/2023 9:04 AM CDT): Dual chamber pacemaker is functioning appropriately as programmed Lead impedances, sensing, and thresholds are stable No programming changes Continue remote monitoring quarterly Follow up in 1 year for device check CHB (complete heart block) 11/17/2020 Assessment & Plan (01/04/2023 9:35 AM CDT): Post-operative complete heart block and sinus node dysfunction s/p Medtronic dual chamber pacemaker She is not dependent Sick sinus syndrome 11/17/2020 Hypercalcemia 11/20/2019 Atrial fibrillation 05/22/2019 History of aortic valve repl acement with bioprosthetic valve 07/31/2018 Assessment & Plan (01/04/2023 9:03 AM CDT): Severe aortic stenosis and CAD s/p bioprosthetic aortic valve replacement and CABG 06/24/2018 HIT (heparin-induced thrombocytopenia) 9 Assessment & Plan (07/20/2018 2:01 PM SPANISH LITERATURE PROFESSOR): Both HIT & KARRI positive -continue coumadin -H/O Extensive DVT of LUE, arterial flow bifasic and with good flow -Vascular Surgery signed off on 07/05/2018 Assessment & Plan (07/19/2018 10:17 AM SPANISH LITERATURE PROFESSOR): Both HIT & KARRI positive - DC Bival INR 2.6, continue coumadin -H/O Extensive DVT of LUE, arterial flow bifasic and with good flow -Vascular Surgery signed off on 07/05/2018 Assessment & Plan (07/16/2018 11:24 AM SPANISH LITERATURE PROFESSOR): Both HIT & KARRI positive - On Bival & receiving coumadin -H/O Extensive DVT of LUE, arterial flow bifasic and with good flow -Vascular Surgery signed off on 07/05/2018 Assessment & Plan (07/13/2018 3:01 PM SPANISH LITERATURE PROFESSOR): HIT +- KARRI + - On Bival- no coumadin until plts improve (100K x 72 hours) - Plt now 88 K from 96K from 87K - Left arm edematous (improved), cool with palpable radial pulse, red in color- nailbeds kellen - Venous and arterial doppler ordered. Extensive DVT of LUE, arterial flow bifasic and with good flow - Q 2 hours neurovascular cks. Keep PTT 60-80 - Vascular consulted- will continue bival and coumadin -> continue to monitor closely Assessment & Plan (07/06/2018 5:02 PM SPANISH LITERATURE PROFESSOR): -She has ADI, definitively. Heparin is listed as an allergy. Make sure to avoid all heparin flushes -Continue bivalrudin -Given relative lack of experience with DOACs in ADI, we would recommend bridging to warfarin when out of the acute phase -Would start warfarin when platelets have been >100 x 2 (per [facility] protocol) --- needs to bridge to a therapeutic INR while on bivalrudin -The starting dose of warfarin should be no more than 5mg -We will follow up with the correct bridging protocol as that time gets closer Assessment & Plan (07/12/2018 10:34 AM SPANISH LITERATURE PROFESSOR): HIT +- KARRI + - On Bival- no coumadin until plts improve (100K x 72 hours) - Plt now 96K from 87K - Left arm edematous (improved), cool with palpable radial pulse, red in color- nailbeds kellen - Venous and arterial doppler ordered. Extensive DVT of LUE, arterial flow bifasic and with good flow - Q 2 hours neurovascular cks. Keep PTT 60-80 - Vascular consulted- will continue bival and continue to monitor closely Thrombocytopenia 07/03/2018 Assessment & Plan (07/20/2018 2:03 PM SPANISH LITERATURE PROFESSOR): HIT positive - Hematology recommendations appreciated -Ongoing Coumadin - Dr. Joyce wants coumadin not Doac due to her renal function - off Bival - started coumadin 3/2, PLT 111K Coumadin dose = 6 mg on discharge with plans to see Dr. Joyce on 07/22/18 at which time he will check an INR, following that her local oncologist will continue to manage Assessment & Plan (07/19/2018 10:18 AM SPANISH LITERATURE PROFESSOR): HIT positive - Hematology recommendations appreciated -Ongoing Coumadin - Dr. Joyce wants coumadin not Doac due to her renal function - DC Bival - started coumadin 3/2, PLT 127K Coumadin dose = 6 mg tonight (Today's INR = 2.6) Assessment & Plan (07/18/2018 3:02 PM SPANISH LITERATURE PROFESSOR): HIT positive - Hematology recommendations appreciated -Ongoing bival & Coumadin - Dr. Joyce wants coumadin not Doac due to her renal function - PTT therapeutic on bivalirudin - started coumadin 3/2, PLT 100K Coumadin dose = 7.5 mg tonight (Today's INR = 1.66) Assessment & Plan (07/13/2018 3:02 PM SPANISH LITERATURE PROFESSOR): HIT positive - Hematology initial recommendations for bival until plts recover ( > 100K) and then consider Coumadin or DOAC - PLT count 88K today from 96K from 87K - Hematology consulted- recommendations for bival until plts recover ( > 100K) and then consider Coumadin or DOAC - Dr. Joyce wants coumadin not Doac due to her renal function - PTT therapeutic on bivalirudin - started coumadin 07/13, PLT 88 from 96 -> per Dr. Joyce continue coumadin and heparin drip Assessment & Plan (07/12/2018 10:36 AM SPANISH LITERATURE PROFESSOR): HIT positive - PLT count improving 96K from 87K - Hematology consulted- recommendations for bival until plts recover ( > 100K) and then consider Coumadin or DOAC - Dr. Joyce wants coumadin not Doac due to her renal function - PTT therapeutic on bivalirudin - Will transition to Coumadin when plts > 100 K Atrial fibrillation 06/29/2018 Assessment & Plan (07/20/2018 1:59 PM SPANISH LITERATURE PROFESSOR): Post-op paroxysmal atrial fibrillation Currently paced per recent pacemaker placement Amiodarone therapy continues at 200 mg daily DC Bival gtt INR 2.42 on coumadin Platelets ~ 111 K today Goal INR ~ 2 Assessment & Plan (07/19/2018 10:16 AM SPANISH LITERATURE PROFESSOR): Post-op paroxysmal atrial fibrillation Currently paced per recent pacemaker placement Amiodarone therapy continues at 200 mg daily DC Bival gtt INR 2.6 Platelets ~ 127 K today Goal INR ~ 2 Assessment & Plan (07/16/2018 11:23 AM SPANISH LITERATURE PROFESSOR): Post-op paroxysmal atrial fibrillation Currently paced per recent pacemaker placement Amiodarone therapy continues at 200 mg daily Ongoing bivalirudin drip & coumadin Platelets ~ 100 K today Goal INR ~ 2 Assessment & Plan (07/13/2018 2:59 PM SPANISH LITERATURE PROFESSOR): Post-op paroxysmal atrial fibrillation - currently A-paced - continue Amiodarone 200 mg po daily - coumadin started 07/13 with PLT of 96 -> down to 88 3/2 -> continue coumadin per Dr. Joyce - continue heparin drip until therapeutic INR Assessment & Plan (07/12/2018 10:31 AM SPANISH LITERATURE PROFESSOR): Post-op paroxysmal atrial fibrillation - currently A-paced - continue Amiodarone 200 mg po daily - unable to initiate anticoagulation until PLT > 100k -> PLT 96 today, will discuss with Dr. Joyce timing of starting AC Chronic renal insufficiency 06/25/2018 Assessment & Plan (07/20/2018 2:00 PM SPANISH LITERATURE PROFESSOR): Baseline creatine ~ 1.3 Today, down to stable 1.46 from 1.49 (from 1.52 yesterday) Continue lasix on discharge Assessment & Plan (07/19/2018 10:16 AM SPANISH LITERATURE PROFESSOR): Baseline creatine ~ 1.3 Today, down to 1.49 (from 1.52 yesterday) Daily BMPs continue Ongoing diuresis with lasix Assessment & Plan (07/18/2018 3:02 PM SPANISH LITERATURE PROFESSOR): Baseline creatine ~ 1.3 Today, down to 1.52 (from 1.49 yesterday) Daily BMPs continue Ongoing diuresis with lasix Assessment & Plan (07/13/2018 3:00 PM SPANISH LITERATURE PROFESSOR): Looks like baseline is around 1.3. - Creatinine bumped to 1.92 but repeat 1.55 - continue Lasix which was restarted on 07/11 - Will continue to monitor Assessment & Plan (07/12/2018 10:32 AM SPANISH LITERATURE PROFESSOR): Looks like baseline is around 1.3. - Creatinine down from 1.87 to 1.59 to 1.48. - Lasix restarted yesterday (07/11) - Will continue to monitor Assessment & Plan (06/27/2018 7:34 PM SPANISH LITERATURE PROFESSOR): Gentle diuresis for FBG even to -500mL. -renal dosing for medications -Cr down to 1.35 from 1.5 -CTM Acute blood loss anemia 06/25/2018 Assessment & Plan (07/20/2018 1:59 PM SPANISH LITERATURE PROFESSOR): H/H stable - continue iron supplementation Assessment & Plan (07/19/2018 9:59 AM SPANISH LITERATURE PROFESSOR): H/H stable - continue iron supplementation -continue daily CBCs Assessment & Plan (07/16/2018 8:27 AM SPANISH LITERATURE PROFESSOR): H/H stable - continue iron supplementation -continue daily CBCs Assessment & Plan (07/13/2018 2:58 PM SPANISH LITERATURE PROFESSOR): H/H stable - continue iron supplementation - continue to monitor Assessment & Plan (07/12/2018 10:08 AM SPANISH LITERATURE PROFESSOR): H/H stable at 8.5/27.1 - continue iron supplementation Assessment & Plan (06/28/2018 2:24 PM SPANISH LITERATURE PROFESSOR): Acute blood loss anemia secondary to cardiac surgery. Has not required blood in past 48 hours, currently downtrending. - has 1 u T+C on 06/25 Post-surgical complete heart block 06/25/2018 Assessment & Plan (07/20/2018 2:01 PM SPANISH LITERATURE PROFESSOR): S/p PPM placement 0n 06/28/2018 AAIR-DDDR - Medtronic changed lower rate to 80 Pacer site without swelling or drainage Assessment & Plan (07/19/2018 10:18 AM SPANISH LITERATURE PROFESSOR): S/p PPM placement 0n 06/28/2018 AAIR-DDDR - Medtronic changed lower rate to 80 Pacer site without swelling or drainage Assessment & Plan (07/16/2018 11:17 AM SPANISH LITERATURE PROFESSOR): S/p PPM placement 0n 06/28/2018 AAIR-DDDR - Medtronic changed lower rate to 80 Pacer site without swelling or drainage Assessment & Plan (07/13/2018 3:01 PM SPANISH LITERATURE PROFESSOR): S/p PPM placement AAIR-DDDR - Medtronic changed lower rate to 80 Pacer site without swelling or drainage Assessment & Plan (07/10/2018 2:32 PM SPANISH LITERATURE PROFESSOR): S/p PPM placement AAIR-DDDR - Medtronic changed lower rate to 80 Pacer site without swelling or drainage Coronary artery disease involving [place] heart 0 06/20/2018 Overview (06/20/2018): Added automatically from request for surgery [id number] Assessment & Plan (07/20/2018 2:01 PM SPANISH LITERATURE PROFESSOR): S/p CABG x 1 On 06/25/2018 Continue ASA, statin. BB, diuresis on discharge INR 2.42 today, discharge on coumadin to 6mg Discharge home today -> follow-up with Dr. Joyce on 07/22/2018 Assessment & Plan (07/19/2018 10:17 AM SPANISH LITERATURE PROFESSOR): S/p CABG x 1 On 06/25/2018 Post op care (telemetry, I & O, daily weights, medication adjustments) Ongoing- PT/OT/OOB Continue ASA, statin. BB, diuresis INR 2.6 today, decrease coumadin to 6mg, DC Bival gtt Assessment & Plan (07/16/2018 11:11 AM SPANISH LITERATURE PROFESSOR): S/p CABG x 1 On 06/25/2018 Post op care (telemetry, I & O, daily weights, medication adjustments) Ongoing- PT/OT/OOB Continue ASA, statin. BB, diuresis Waiting for therapeutic INR (see below) Assessment & Plan (07/13/2018 3:00 PM SPANISH LITERATURE PROFESSOR): S/p CABG x 1 06/25/2018 - Continue post operative care - Increase activity as tolerated - PT/OT/OOB - Continue ASA, statin. BB, diuresis - discharge planning -> possibly 07/15/18 Assessment & Plan (06/28/2018 2:24 PM SPANISH LITERATURE PROFESSOR): Coronary artery disease is improving with treatment. S/p CABG - consider BB and HAMIDA/ARB once tolerating BP well off pressors -cont aspirin and statin Assessment & Plan (07/12/2018 10:33 AM SPANISH LITERATURE PROFESSOR): S/p CABG x 1 06/25/2018 - Continue post operative care - Increase activity as tolerated - PT/OT/OOB - Continue ASA, statin. BB, diuresis - discharge planning -> possibly 07/15/18 Diastolic heart failure 04/18/2018 Assessment & Plan (07/20/2018 2:01 PM SPANISH LITERATURE PROFESSOR): Most recent echo on 07/02 with results including: EF=62%.Diastolic function: indeterminate Continue daily lasix Ongoing weight trends. Assessment & Plan (07/19/2018 10:17 AM SPANISH LITERATURE PROFESSOR): Most recent echo on 07/02 with results including: EF=62%.Diastolic function: indeterminate Continue daily lasix Ongoing weight trends. Assessment & Plan (07/16/2018 11:17 AM SPANISH LITERATURE PROFESSOR): Most recent echo on 07/02 with results including: EF=62%.Diastolic function: indeterminate Continue daily lasix Ongoing weight trends. History of right mastectomy 08/23/2017 Iron deficiency anemia 08/23/2017 Malignant neoplasm of endometrium 03/12/2017 Hypertension 03/12/2017 Malignant neoplasm of breast 03/12/2017 Class 3 severe obesity due t o excess calories with serious comorbidity and body mass index (BMI) of 50.0 to 59.9 in adult 03/12/2017 Assessment & Plan (07/20/2018 2:01 PM SPANISH LITERATURE PROFESSOR): BMI = 53 on admission Bariatric equipment & Fall precautions continue. Assessment & Plan (07/19/2018 10:17 AM SPANISH LITERATURE PROFESSOR): BMI = 53 on admission Bariatric equipment & Fall precautions continue. Assessment & Plan (07/16/2018 11:20 AM SPANISH LITERATURE PROFESSOR): BMI = 53 on admission Bariatric equipment & Fall precautions continue. Obstructive sleep apnea, adult 03/12/2017 Assessment & Plan (07/20/2018 2:01 PM SPANISH LITERATURE PROFESSOR): Home cpap Tolerating well Assessment & Plan (07/14/2018 1:42 PM SPANISH LITERATURE PROFESSOR): Home cpap Tolerating well Assessment & Plan (07/13/2018 3:01 PM SPANISH LITERATURE PROFESSOR): Home cpap Tolerating well Assessment & Plan (06/28/2018 2:23 PM SPANISH LITERATURE PROFESSOR): Extubated night of 06/25 - cont CPAP at night - 4L bleed, on home machine Assessment & Plan (07/11/2018 10:49 AM SPANISH LITERATURE PROFESSOR): Home cpap Tolerating well Asthma 09/21/2013 Overview (12/09/2018): Converted unresolved ICD9, potential mismatch. Other and unspecified hyperlipidemia 09/21/2013 Overview (12/09/2018): Converted unresolved ICD9, potential mismatch. Other abnormal blood chemistry 09/21/2013 Overview (12/09/2018): Converted unresolved ICD9, potential mismatch. Current Treatment and Therapy Plans No current plan information found. Past Treatment and Therapy Plans No past plan information found. Lifetime Dose Tracking * Chemical Lifetime Dose Automatic Entry Manual Entr y Fluoro Time 22.5 minutes 0.2 minutes 22.3 minutes Air kerma at the reference point (Ka,r) 1,105.865 mGy 1 mGy 1,104.865 mGy DLP 1,673 mGycm 1,673 mGycm 0 mGycm DAP 46.945 Gy-cm2 0 Gy-cm2 46.945 Gy-cm2 Resolved Problems Problem Noted Date Diagnosed Date Resolved Date Volume overload 07/11/2018 07/16/2018 Assessment & Plan (07/16/2018 8:30 AM SPANISH LITERATURE PROFESSOR): CXR from yesterday with read pending CXR from 07/11 w/ read = There is mild bibasilar atelectasis. There is no pleural effusion, pulmonary edema, focal consolidation, or pneumothorax. Receiving ongoing lasix Will DC this problem and continue diastolic heart problem Assessment & Plan (07/13/2018 3:04 PM SPANISH LITERATURE PROFESSOR): Last dose of lasix 07/08 due to HARISH -> restart lasix 20mg PO daily on 07/11 - CXR 07/11 negative Assessment & Plan (07/12/2018 10:38 AM SPANISH LITERATURE PROFESSOR): Last dose of lasix /25 due to HARISH -> restart lasix 20mg PO daily yesterday (07/11) - CXR 07/11 negative Leukocytosis 06/27/2018 07/10/2018 Assessment & Plan (07/08/2018 11:41 AM SPANISH LITERATURE PROFESSOR): WBC WNL Sternal wound C/D/I Remains afebrile. Prophylactic antibiotics d/c today Assessment & Plan (06/27/2018 7:41 PM SPANISH LITERATURE PROFESSOR): Persistent leukocytosis. Remains afebrile. - New cx pending - WBC downtrended from 20->18 06/27 Postoperative cardiogenic shock 05/17/2017 06/29/2018 Assessment & Plan (06/28/2018 2:23 PM SPANISH LITERATURE PROFESSOR): 2/3 S/p bioAVR without AI at conclusion of case -Epi weaned prior to pacemaker insertion - has heart block, EP c/s'd - pacemaker placement today - to TTF after procedure if tolerates well Assessment & Plan (06/24/2018 4:22 PM SPANISH LITERATURE PROFESSOR): Plan for AVR in AM Preop labs ordered. NPO after MN CAD (coronary artery disease) 05/17/2017 07/16/2018
--- OUTSIDE RECORDS SUMMARY | 2025-01-13 13:18 | XMS_ITS | Clinical Summary ---
Author Organization [facility] Address [address] [place] [id number] Phone Care Team Providers Care Trimming Machine Set Up Operator Name Role Phone Unavailable Primary Care Provider Unavailabl e Medications simvastatin (ZOCOR) 20 MG tablet 1 tab/cap qday 09/21/2013 Active albuterol HFA (PROVENTIL HFA) 108 (90 Base) MCG/ACT inhaler 2 puffs every 4 - 6hrs PRN 09/21/2013 Active benazepril-hydro chlorthiazide (LOTENSIN HCT) 20-12.5 MG per tablet 1 tab/cap qday 09/21/2013 Active traMADol (ULTRAM) 50 MG tablet 1 tab/cap q6hr PRN 09/21/2013 Active metoprolol succinate XL (TOPROL-XL) 200 MG 24 hr tablet 1 tab/cap qday 09/21/2013 Active mometasone (ASMANEX 60 METERED DOSES) 220 MCG/INH inhaler 2 puffs qhs 09/21/2013 Active Active Problems Problem Noted Date Diagnosed Date Essential (primary) hypertension 09/21/2013 Other and unspecified hyperlipidemia 09/21/2013 Overview (07/27/2018): Converted unresolved ICD9, potential mismatch. Other abnormal blood chemistry 09/21/2013 Overview (07/27/2018): Converted unresolved ICD9, potential mismatch. Asthma 09/21/2013 Overview (07/27/2018): Converted unresolved ICD9, potential mismatch. Family History Medical History Relation Comments Kidney disease Neg Hx Kidney stone Neg Hx Social History Tobacco Use Types Packs/Day Years Used Date Smoking Tobacco: Never Assessed Comments Unknown Sex and Gender Information Value Date Recorded Sex Assigned at Not on file Legal Sex Female 9:27 AM [facility] Gender Identity Not on file Sexual Orientation Not on file Last Filed Vital Signs Vital Sign Reading Time Taken Comments Blood Pressure 132/70 11/11/2013 12:01 AM CDT Si tting, Left Pulse - - Temperature 37.2 C (99 F) 11/11/2013 12:01 AM CDT Respiratory Rate - - Oxygen Saturation - - Inhaled Oxygen Concentration - - Weight 128 kg (283 lb) 11/11/2013 12:01 AM CDT Height 147.3 cm (4' 10) 11/11/2013 12:01 AM CDT Body Mass Index 59.15 11/11/2013 12:01 AM CDT Plan of Treatment Not on file
--- OUTSIDE RECORDS SUMMARY | 2025-01-13 13:18 | XMS_ITS | Encounter Summary ---
Author Organization [facility] Address [address] [place] [address] Phone Care Team Providers Care Printed Circuit Board Pcb Designer Name Role Phone Rigoberto Robles MD Primary Care Provider [phone] Karla Marx MD Unavailable [phone] Jeffrey Skinner MD Unavailable Marlo Joyce MD Unavailable [phone] Encounter Details Date Type Department Care Team (Late st Contact Info) Description 02/14/2018 Telephone [facility] Cardiology [address] [facility] Advanced Medicine [address]th [place] [address] [place] [address] Karla Marx MD [address] [place] [address] Social History Tobacco Use Types Packs/Day Years Used Date Smoking Tobacco: Never Smokeless Tobacco: Never Alcohol Use Standard Drinks/Week Comments No 0 (1 standard drink = 0.6 oz pur e alcohol) Comments No Sex and Gender Information Value Date Recorded Sex Assigned at Not on file Legal Sex 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 [employer] Gender Identity Not on file Sexual Orientation Not on file documented as of this encounter Plan of Treatment Not on file documented as of this encounter Visit Diagnoses Not on filedocumented in this encounter Care Teams Printed Circuit Board Pcb Designer Relationship Specialty Start Date End Date Rigoberto Robles MD PCP - General 05/09/07 Karla Marx MD Referring Physician Cardiology 03/07/18 Jeffrey Skinner MD [address] [place] [address] Referring Physician Obstetrics and Gynecology 07/19/20 Marlo Joyce MD [address] [place] [address] Surgeon Cardiothoracic Surgery 07/19/20 documented as of this encounter
--- OUTSIDE RECORDS SUMMARY | 2025-01-13 13:18 | XMS_ITS | Clinical Summary ---
Author Organization [facility] Address [address] [place] [address] Care Team Providers Care Circuit Board Drafter Name Role Phone Riogberto Robles MD Primary Care Provider Karla Marx MD Unavailable [phone] Jeffrey Skinner MD Unavailable [phone] Marlo Joyce MD Unavailable [phone] Allergies Active Allergy Reactions Criticality Noted Date Comments Heparin HIT High 07/04/2018 Red Dye Cough Low [place] Shortness of breath High Rivaroxaban Other (See comments) Low 07/29/2018 Pt states she bled out Ezetimibe Rash Medium 03/05/2020 Medications cholecalcifero l (VITAMIN D-3) 2,000 unit capsule 1 capsule (2,000 Units total) daily Active loratadine (CLARITIN) 10 mg tablet Take 1 tablet (10 mg total) by mouth daily Active aspirin 81 mg chewable tablet Take 1 tablet (81 mg total) by mouth daily 30 tablet 11 9 11/18/19 30 Active ascorbic acid (VITAMIN C ORAL) Take 1 tablet by mouth daily Active amoxicillin (amoxicillin) 500 mg tablet/capsule TAKE 4 CAPSULES BY MOUTH 1 HOUR PRIOR TO DENTAL EXAM, CLEANINGS, TREATMENTS, PROCEDURES 12 tablet/capsu le 2 Active Lactobac no.41/Bifidoba ct no.7 (PROBIOTIC-10 ORAL) Take 1 tablet by mouth daily Active amLODIPine (NORVASC) 5 mg tablet TAKE 1 TABLET (5 MG TOTAL) BY MOUTH DAILY. 90 tablet 2 5 Active metoprolol XL (TOPROL-XL) 100 mg 24 hr tablet TAKE 1 TABLET BY MOUTH EVERY DAY 90 tablet 2 5 Active atorvastatin (LIPITOR) 80 mg tablet Take 1 tablet (80 mg total) by mouth daily 90 tablet 3 5 Active atorvastatin (LIPITOR) 80 mg tablet TAKE 1 TABLET BY MOUTH EVERY DAY 90 tablet 3 4 01/06/20 25 Discontinu ed(Reorder ) Active Problems Problem Noted Date Diagnosed Date Hx of CABG 10/15/2023 Pacemaker 01/04/2023 Overview (10/04/2023): Medtronic Avis Dual Pacemaker Dx; SSS, Afib, CHB. DOI 06/28/18 Dr. Wyatt Salvador [facility]. Office pacer checks yearly. Carelink remotes Q3 [...] 9 Assessment & Plan (07/20/2018 2:01 PM GAS APPLIANCE INSTALLER): Both HIT & KARRI positive -continue coumadin -H/O Extensive DVT of LUE, arterial flow bifasic and with good flow -Vascular Surgery signed off on 07/05/2018 Assessment & Plan (07/19/2018 10:17 AM GAS APPLIANCE INSTALLER): Both HIT & KARRI positive - DC Bival INR 2.6, continue coumadin -H/O Extensive DVT of LUE, arterial flow bifasic and with good flow -Vascular Surgery signed off on 07/05/2018 Assessment & Plan (07/16/2018 11:24 AM GAS APPLIANCE INSTALLER): Both HIT & KARRI positive - On Bival & receiving coumadin -H/O Extensive DVT of LUE, arterial flow bifasic and with good flow -Vascular Surgery signed off on 07/05/2018 Assessment & Plan (07/13/2018 3:01 PM GAS APPLIANCE INSTALLER): HIT +- KARRI + - On Bival- [...] closely Assessment & Plan (07/06/2018 5:02 PM GAS APPLIANCE INSTALLER): -She has ADI, definitively. Heparin is listed as an allergy. Make sure to avoid all heparin flushes -Continue bivalrudin -Given relative lack of experience with DOACs in ADI, we would recommend bridging to warfarin when out of the acute phase -Would start warfarin when platelets have been >100 x 2 (per [facility] protocol) --- needs to bridge to a therapeutic INR while on bivalrudin -The starting dose of warfarin should be no more than 5mg -We will follow up with the correct bridging protocol as that time gets closer Assessment & Plan (07/12/2018 10:34 AM GAS APPLIANCE INSTALLER): HIT +- KARRI + - On Bival- [...] 07/03/2018 Assessment & Plan (07/20/2018 2:03 PM GAS APPLIANCE INSTALLER): HIT positive - Hematology recommendations appreciated -Ongoing Coumadin - Dr. Joyce wants coumadin not Doac due to her renal function - off Bival - started coumadin 3, PLT 111K Coumadin dose = 6 mg on discharge with plans to see Dr. Joyce on 07/22/18 at which time he will check an INR, following that her local oncologist will continue to manage Assessment & Plan (07/19/2018 10:18 AM GAS APPLIANCE INSTALLER): HIT positive - Hematology recommendations appreciated -Ongoing Coumadin - Dr. Joyce wants coumadin not Doac due to her renal function - DC Bival - started coumadin 07/13, PLT 127K Coumadin dose = 6 mg tonight (Today's INR = 2.6) Assessment & Plan (07/18/2018 3:02 PM GAS APPLIANCE INSTALLER): HIT positive - Hematology recommendations appreciated -Ongoing bival & Coumadin - Dr. Joyce wants coumadin not Doac due to her renal function - PTT therapeutic on bivalirudin - started coumadin 3, PLT 100K Coumadin dose = 7.5 mg tonight (Today's INR = 1.66) Assessment & Plan (07/13/2018 3:02 PM GAS APPLIANCE INSTALLER): HIT positive - Hematology initial recommendations for [...] on bivalirudin - started coumadin 3/2, PLT 88 from 96 -> per Dr. Joyce continue coumadin and heparin drip Assessment & Plan (07/12/2018 10:36 AM GAS APPLIANCE INSTALLER): HIT positive - PLT count improving 96K from 87K - Hematology consulted- recommendations for bival until plts recover ( > 100K) and then consider Coumadin or DOAC - Dr. Joyce wants coumadin not Doac due to her renal function - PTT therapeutic on bivalirudin - Will transition to Coumadin when plts > 100 K Atrial fibrillation 06/29/2018 Assessment & Plan (07/20/2018 1:59 PM GAS APPLIANCE INSTALLER): Post-op paroxysmal atrial fibrillation Currently paced per recent pacemaker placement Amiodarone therapy continues at 200 mg daily DC Bival gtt INR 2.42 on coumadin Platelets ~ 111 K today Goal INR ~ 2 Assessment & Plan (07/19/2018 10:16 AM GAS APPLIANCE INSTALLER): Post-op paroxysmal atrial fibrillation Currently paced per recent pacemaker placement Amiodarone therapy continues at 200 mg daily DC Bival gtt INR 2.6 Platelets ~ 127 K today Goal INR ~ 2 Assessment & Plan (07/16/2018 11:23 AM GAS APPLIANCE INSTALLER): Post-op paroxysmal atrial fibrillation Currently paced per recent pacemaker placement Amiodarone therapy continues at 200 mg daily Ongoing bivalirudin drip & coumadin Platelets ~ 100 K today Goal INR ~ 2 Assessment & Plan (07/13/2018 2:59 PM GAS APPLIANCE INSTALLER): Post-op paroxysmal atrial fibrillation - currently A-paced - continue Amiodarone 200 mg po daily - coumadin started 3/ with PLT of 96 -> down to 88 3/2 -> continue coumadin per Dr. Joyce - continue heparin drip until therapeutic INR Assessment & Plan (07/12/2018 10:31 AM GAS APPLIANCE INSTALLER): Post-op paroxysmal atrial fibrillation - currently A-paced - continue Amiodarone 200 mg po daily - unable to initiate anticoagulation until PLT > 100k -> PLT 96 today, will discuss with Dr. Joyce timing of starting AC Chronic renal insufficiency 06/25/2018 Assessment & Plan (07/20/2018 2:00 PM GAS APPLIANCE INSTALLER): Baseline creatine ~ 1.3 Today, down to stable 1.46 from 1.49 (from 1.52 yesterday) Continue lasix on discharge Assessment & Plan (07/19/2018 10:16 AM GAS APPLIANCE INSTALLER): Baseline creatine ~ 1.3 Today, down to 1.49 (from 1.52 yesterday) Daily BMPs continue Ongoing diuresis with lasix Assessment & Plan (07/18/2018 3:02 PM GAS APPLIANCE INSTALLER): Baseline creatine ~ 1.3 Today, down to 1.52 (from 1.49 yesterday) Daily BMPs continue Ongoing diuresis with lasix Assessment & Plan (07/13/2018 3:00 PM GAS APPLIANCE INSTALLER): Looks like baseline is around 1.3. - Creatinine bumped to 1.92 but repeat 1.55 - continue Lasix which was restarted on 07/11 - Will continue to monitor Assessment & Plan (07/12/2018 10:32 AM GAS APPLIANCE INSTALLER): Looks like baseline is around 1.3. - Creatinine down from 1.87 to 1.59 to 1.48. - Lasix restarted yesterday (07/11) - Will continue to monitor Assessment & Plan (06/27/2018 7:34 PM GAS APPLIANCE INSTALLER): Gentle diuresis for FBG even to -500mL. -renal dosing for medications -Cr down to 1.35 from 1.5 -CTM Acute blood loss anemia 06/25/2018 Assessment & Plan (07/20/2018 1:59 PM GAS APPLIANCE INSTALLER): H/H stable - continue iron supplementation Assessment & Plan (07/19/2018 9:59 AM GAS APPLIANCE INSTALLER): H/H stable - continue iron supplementation -continue daily CBCs Assessment & Plan (07/16/2018 8:27 AM GAS APPLIANCE INSTALLER): H/H stable - continue iron supplementation -continue daily CBCs Assessment & Plan (07/13/2018 2:58 PM GAS APPLIANCE INSTALLER): H/H stable - continue iron supplementation - continue to monitor Assessment & Plan (07/12/2018 10:08 AM GAS APPLIANCE INSTALLER): H/H stable at 8.5/27.1 - continue iron supplementation Assessment & Plan (06/28/2018 2:24 PM GAS APPLIANCE INSTALLER): Acute blood loss anemia secondary to cardiac surgery. Has not required blood in past 48 hours, currently downtrending. - has 1 u T+C on 06/25 Post-surgical complete heart block 06/25/2018 Assessment & Plan (07/20/2018 2:01 PM GAS APPLIANCE INSTALLER): S/p PPM placement 0n 06/28/2018 AAIR-DDDR - Medtronic changed lower rate to 80 Pacer site without swelling or drainage Assessment & Plan (07/19/2018 10:18 AM GAS APPLIANCE INSTALLER): S/p PPM placement 0n 06/28/2018 AAIR-DDDR - Medtronic changed lower rate to 80 Pacer site without swelling or drainage Assessment & Plan (07/16/2018 11:17 AM GAS APPLIANCE INSTALLER): S/p PPM placement 0n 06/28/2018 AAIR-DDDR - Medtronic changed lower rate to 80 Pacer site without swelling or drainage Assessment & Plan (07/13/2018 3:01 PM GAS APPLIANCE INSTALLER): S/p PPM placement AAIR-DDDR - Medtronic changed lower rate to 80 Pacer site without swelling or drainage Assessment & Plan (07/10/2018 2:32 PM GAS APPLIANCE INSTALLER): S/p PPM placement AAIR-DDDR - Medtronic changed lower rate to 80 Pacer site without swelling or drainage Coronary artery disease involving [place] heart 0 06/20/2018 Overview (06/20/2018): Added automatically from request for surgery [id number] Assessment & Plan (07/20/2018 2:01 PM GAS APPLIANCE INSTALLER): S/p CABG x 1 On 06/25/2018 Continue ASA, statin. BB, diuresis on discharge INR 2.42 today, discharge on coumadin to 6mg Discharge home today -> follow-up with Dr. Joyce on 07/22/2018 Assessment & Plan (07/19/2018 10:17 AM GAS APPLIANCE INSTALLER): S/p CABG x 1 On 06/25/2018 Post op care (telemetry, I & O, daily weights, medication adjustments) Ongoing- PT/OT/OOB Continue ASA, statin. BB, diuresis INR 2.6 today, decrease coumadin to 6mg, DC Bival gtt Assessment & Plan (07/16/2018 11:11 AM GAS APPLIANCE INSTALLER): S/p CABG x 1 On 06/25/2018 Post op care (telemetry, I & O, daily weights, medication adjustments) Ongoing- PT/OT/OOB Continue ASA, statin. BB, diuresis Waiting for therapeutic INR (see below) Assessment & Plan (07/13/2018 3:00 PM GAS APPLIANCE INSTALLER): S/p CABG x 1 06/25/2018 - Continue post operative care - Increase activity as tolerated - PT/OT/OOB - Continue ASA, statin. BB, diuresis - discharge planning -> possibly 07/15/18 Assessment & Plan (06/28/2018 2:24 PM GAS APPLIANCE INSTALLER): Coronary artery disease is improving with treatment. S/p CABG - consider BB and HAMIDA/ARB once tolerating BP well off pressors -cont aspirin and statin Assessment & Plan (07/12/2018 10:33 AM GAS APPLIANCE INSTALLER): S/p CABG x 1 06/25/2018 - Continue post operative care - Increase activity as tolerated - PT/OT/OOB - Continue ASA, statin. BB, diuresis - discharge planning -> possibly 07/15/18 Diastolic heart failure 04/18/2018 Assessment & Plan (07/20/2018 2:01 PM GAS APPLIANCE INSTALLER): Most recent echo on 07/02 with results including: EF=62%.Diastolic function: indeterminate Continue daily lasix Ongoing weight trends. Assessment & Plan (07/19/2018 10:17 AM GAS APPLIANCE INSTALLER): Most recent echo on 07/02 with results including: EF=62%.Diastolic function: indeterminate Continue daily lasix Ongoing weight trends. Assessment & Plan (07/16/2018 11:17 AM GAS APPLIANCE INSTALLER): Most recent echo on 07/02 with results [...] 03/12/2017 Assessment & Plan (07/20/2018 2:01 PM GAS APPLIANCE INSTALLER): BMI = 53 on admission Bariatric equipment & Fall precautions continue. Assessment & Plan (07/19/2018 10:17 AM GAS APPLIANCE INSTALLER): BMI = 53 on admission Bariatric equipment & Fall precautions continue. Assessment & Plan (07/16/2018 11:20 AM GAS APPLIANCE INSTALLER): BMI = 53 on admission Bariatric equipment & Fall precautions continue. Obstructive sleep apnea, adult 03/12/2017 Assessment & Plan (07/20/2018 2:01 PM GAS APPLIANCE INSTALLER): Home cpap Tolerating well Assessment & Plan (07/14/2018 1:42 PM GAS APPLIANCE INSTALLER): Home cpap Tolerating well Assessment & Plan (07/13/2018 3:01 PM GAS APPLIANCE INSTALLER): Home cpap Tolerating well Assessment & Plan (06/28/2018 2:23 PM GAS APPLIANCE INSTALLER): Extubated night of 06/25 - cont CPAP at night - 4L bleed, on home machine Assessment & Plan (07/11/2018 10:49 AM GAS APPLIANCE INSTALLER): Home cpap Tolerating well Asthma 09/21/2013 Overview (12/09/2018): Converted unresolved ICD9, potential mismatch. Other and unspecified hyperlipidemia 09/21/2013 Overview (12/09/2018): Converted unresolved ICD9, potential mismatch. Other abnormal blood chemistry 09/21/2013 Overview (12/09/2018): Converted unresolved ICD9, potential mismatch. Resolved Problems Problem Noted Date Diagnosed Date Resolved Date Volume overload 07/11/2018 07/16/2018 Assessment & Plan (07/16/2018 8:30 AM GAS APPLIANCE INSTALLER): CXR from yesterday with read pending CXR from 07/11 w/ read = There is mild bibasilar atelectasis. There is no pleural effusion, pulmonary edema, focal consolidation, or pneumothorax. Receiving ongoing lasix Will DC this problem and continue diastolic heart problem Assessment & Plan (07/13/2018 3:04 PM GAS APPLIANCE INSTALLER): Last dose of lasix 25 due to HARISH -> restart lasix 20mg PO daily on 07/11 - CXR 07/11 negative Assessment & Plan (07/12/2018 10:38 AM GAS APPLIANCE INSTALLER): Last dose of lasix 2/25 due to HARISH -> restart lasix 20mg PO daily yesterday (07/11) - CXR 07/11 negative Leukocytosis 06/27/2018 07/10/2018 Assessment & Plan (07/08/2018 11:41 AM GAS APPLIANCE INSTALLER): WBC WNL Sternal wound C/D/I Remains afebrile. Prophylactic antibiotics d/c today Assessment & Plan (06/27/2018 7:41 PM GAS APPLIANCE INSTALLER): Persistent leukocytosis. Remains afebrile. - New cx pending - WBC downtrended from 20->18 06/27 Postoperative cardiogenic shock 05/17/2017 06/29/2018 Assessment & Plan (06/28/2018 2:23 PM GAS APPLIANCE INSTALLER): 2/3 S/p bioAVR without AI at conclusion of case -Epi weaned prior to pacemaker insertion - has heart block, EP c/s'd - pacemaker placement today - to TTF after procedure if tolerates well Assessment & Plan (06/24/2018 4:22 PM GAS APPLIANCE INSTALLER): Plan for AVR in AM Preop labs ordered. NPO after [place] CAD (coronary artery disease) 05/17/2017 07/16/2018 Encounters Date Type Department Care Team Description 01/05/2025 Telephone [facility] [address] [place] [address] [address] [place] [phone] Brenna Smith MD refill 11/19/2024 10:30 AM CDT Ancillary Procedure [facility] [address] [place] [address] [place] [phone] CHB (complete heart block) (HCC); Pacemaker; Sick sinus syndrome (HCC); Paroxysmal atrial fibrillation (HCC) 11/19/2024 Orders Only [facility] [address] [place] [address] [place] [phone] Brenna Smith MD CHB (complete heart block) (HCC) (Primary Dx); Pacemaker; Sick sinus syndrome (HCC); Paroxysmal atrial fibrillation (HCC) 11/18/2024 Telephone [facility] [address] [place] [address] [place] [phone] Brenna Smith MD 10/20/2024 10:30 AM CDT Office Visit [facility] [address] [place] [address] [address] [place] [phone] Brenna Smith MD Coronary artery disease involving [place] coronary artery of [place] heart with angina pectoris (Primary Dx); Hx of CABG; Pacemaker; History of aortic valve replacement with bioprosthetic valve from Last 3 Months Immunizations Immunization Administration Dates Next Due Influenza, Quadrivalent, Hig h Dose, Preservative Free, Intrr 02/21/2020 Influenza, Quadrivalent, Spl it, Preservative Free, Intramuscular 06/14/2016 Influenza, Trivalent, High D ose, Split, Preservative Free, Intramuscular 02/21/2019,03/08/2018,03/07/2018,03/13 Influenza, Unspecified 01/12/2017 Surgical History Surgery Date Site/Laterality Comments IA DELIVERY ONLY Section - (Added by TW Conv) MASTECTOMY Breast Surgery Mastectomy - (Added by TW Conv) IA ARTHROPLASTY KNEE TIBIAL PLATEAU Knee Replacement - (Added by TW Conv) IA DILATION & CURETTAGE DX&/THER NONOBSTETRIC Dilation And Curettage - (Added by TW Conv) CERVICAL BIOPSY W/ LOOP ELECTRODE EXCISION HYSTERECTOMY 03/14/2017 - 04/12/2017 TONSILLECTOMY CENTRAL LINE PLACEMENT > 5 YEARS 07/04/2018 N/A CARDIAC SURGERY 06/14/2018 - 07/11/2018 Medical History Medical History Date Comments Hyperlipidemia Asthma Hypertension Chronic kidney disease Cancer (HCC) breast Cancer (HCC) endometrial GURPREET (obstructive sleep apnea) Heart murmur Coronary artery disease Aortic stenosis Anemia Asthma Arthritis Family History Medical History Relation Name Comments Sudden Cardiac Brother 1 Family history of sudden cardiac - (Added by TW Conv) Heart attack Brother 2 Family history of heart attack - (Added by TW Conv) Hypertension Brother 3 Family history of hypertension - (Added by TW Conv) Rheum arthritis Child Family histo ry of rheumatoid arthritis - (Added by TW Conv) Cancer Father Family history of malignant neoplasm - (Added by TW Conv)/Family history of cancer - (Added by TW Conv) Heart attack Father Family history of heart attack - (Added by TW Conv) Heart disease Father Family history of cardiac disorder - (Added by TW Conv) Hypertension Father Family history of hypertension - (Added by TW Conv) Sudden Cardiac Father Family history of sudden cardiac - (Added by TW Conv) Heart attack Mother Family history of heart attack - (Added by TW Conv) Heart disease Mother Family history of cardiac disorder - (Added by TW Conv) Hypertension Mother Family history of hypertension - (Added by TW Conv) Stroke Mother Family history of stroke - (Added by TW Conv) Sudden Cardiac Mother Family history of sudden cardiac - (Added by TW Conv) Breast cancer Sister 1 Family history of malignant neoplasm of breast - (Added by TW Conv) Diabetes Sister 2 Family history of diabetes mellitus - (Added by TW Conv) Hypertension Sister 3 Family history of hypertension - (Added by TW Conv) Anesthesia problems Neg Hx Relation Name Status Comments Brother 1 Brother 2 Brother 3 Child Father Mother Sister 1 Sister 2 Sister 3 Social History Tobacco Use Types Packs/Day Years Used Date Smoking Tobacco: Never Smokeless Tobacco: Never Tobacco Cessation:Counseling Given: Not Answered Alcohol Use Standard Drinks/Week Comments No 0 (1 standard drink = 0.6 oz pur e alcohol) Comments No Sex and Gender Information Value Date Recorded Sex Assigned at Not on file Legal Sex Female 10:29 PM GAS APPLIANCE INSTALLER Gender Identity Not on file Sexual Orientation Not on file Obstetrics History Para Term AB IAB SAB Ectopic Multiple Livin g Live Births 2 2 1 1 2 2 Date Outcome GA Total Labor Labor/2nd/3rd Weight Sex Type Anes PTL Martha A1 A5 Name Clin Term Last Filed Vital Signs Vital Sign Reading Time Taken Comments Blood Pressure 138/80 10/20/2024 10:27 AM CDT Pulse 79 10/20/2024 10:27 AM CDT Temperature 36.3 C (97.3 F) 02/09/2022 11:08 AM CDT Respiratory Rate 18 02/09/2022 11:08 AM CDT Oxygen Saturation 97% 10/20/2024 10:27 AM CDT Inhaled Oxygen Concentration - - Weight 125.2 kg (276 lb) 10/20/2024 10:27 AM CDT Height 147.3 cm (4' 10) 10/20/2024 10:27 AM CDT Body Mass Index 57.68 10/20/2024 10:27 AM CDT Plan of Treatment Health Maintenance Due Date Last Done Comments Colon Cancer Screening-Colonoscopy 1950 Depression Screening 1950 Fall Risk Assessment 1950 Hepatitis C Screening 1950 DTaP/Tdap/Td Vaccine (1 - Tdap) 1961 Hepatitis B Screening 1968 Pneumococcal vaccine 65+ (1 of 2 - PCV) 1969 Zoster Vaccine (1 of 2) 2000 Well Visit 65+ 2015 Breast Cancer Screening-Mammogram 06/05/2020 020, 05/21/2018 Osteoporosis Screening-Bone Density Scan 04/02/2022 04/02/2020 Influenza Vaccine (#1) 2025 0, 02/21/2019, 03/08/2018, Additional history exists Medical Devices Implanted Type Area Cotton Breeder Device Identifier Shelf Expiration Date Model / Serial / Lot Medtronic Cardiac Rhythm Mgmt 5076-52 Capsurefix Novus 6.2fr 2mm 52cm Bipolar Screw In Implantable Latex Free - [id number] - [id number] Implanted:Qty: 1 on 06/28/2018 by Wyatt Salvador MD PhD at [facility] Lead Left: Chest Medtronic Cardiac Rhythm Mgmt 04/16/2020 5076-52 / [id number] / Medtronic Cardiac Rhythm Mgmt 5076-45 Capsurefix Novus 6.2fr 2mm 45cm Bipolar Screw In Implantable - [id number] - [id number] Implanted:Qty: 1 on 06/28/2018 by Wyatt Salvador MD PhD at [facility] Lead Left: Chest Medtronic Cardiac Rhythm Mgmt 04/22/2020 5076-45 / [id number] / Medtronic Cardiac Rhythm Mgmt [id number] Natalya S Mri Surescan 50.8x46.6mm 2 Chamber 7.4mm Pacemaker 22.5gm - [id number] - [id number] Implanted:Qty: 1 on 06/28/2018 by Rao Ventura MD at [facility] Pacemaker Left: Chest Wall Medtronic Cardiac Rhythm Mgmt [id number] 10/08/2018 [id number] / [id number] / Metal Knee Description:Bilateral knee r eplacement [employer] [id number] Rajat-Jordan ds Perimount Magna Ease 23mm Bioprosthesis - [id number] - [id number] Implanted:Qty: 1 on 06/25/2018 by Marlo Joyce MD at [facility] N/A: Heart [employer] 02/16/2022 [id number] / [id number] / Procedures Procedure Name Priority Date/Time Associated Diagnosis Comments DEVICE CHECK - IN OFFICE Routine 11/19/2024 10:16 AM CDT CHB (complete heart block) (HCC) Pacemaker Sick sinus syndrome (HCC) Paroxysmal atrial fibrillation (HCC) POCT LIPID PANEL Routine 10/20/2024 10:2 9 AM CDT Coronary artery disease involving [place] coronary artery of [place] heart with angina pectoris Hx of CABG DEXA AXIAL AND FOREARM BONE DENSITY SCAN Schedule Routine, Read Routine (OP Routine) 04/02/2020 11:30 AM GAS APPLIANCE INSTALLER Hyperparathyroidism , primary Hypercalcemia from Last 3 Months or Most Recently Relevant to Health Maintenance Results * DEVICE CHECK - IN OFFICE (11/19/2024 10:16 AM CDT) Anatomical Region Laterality Modality Other Narrative 11/25/2024 8:24 PM CDT Medtronic dual pacemaker Dx; SSS, Afib, CHB. DOI 06/28/18 Dr. Wyatt Salvador [facility]. Office pacer checks yearly. [facility] remotes. Supervising MD: Dr Garcia. Office DDD Pacemaker evaluation demonstrated appropriate device function. Left pectoral incision well healed without signs of infection noted. Battery function: 2.96V, 5.4 years remaining battery life to ADELE. Appropriate lead measurements noted. Presenting rhythm: AP-VS. Underlying rhythm- SB 40-50 bpm. AP- 93.4%, BASKET PERSON- <0.1%. 1 Atrial high rate episode noted, iegm Atach, lasting 2 1/2 minutes. 2 Ventricular high rate episodes noted on 06/25/24 iegm NSVT and 04/16/[address]-SVT. Medications; ASA, Toprol XL. Ventricular amplitude decreased to 2.0 V and pulse width increased to 1.0 ms. See scanned report. Office device f/u 02/10/2026. [facility] remote f/u 02/25/2025. Ana Maria Reyes, RN Brenna Smith MD [facility] PROCEDURES Final Result * POCT lipid panel (10/20/2024 10:29 AM CDT) Cholesterol, POC 160 <200 MG/DL HDL, POC 53 >=40 mg/dL Triglycerides, POC 128 <=149 mg/dL LDL Cholesterol POC 81 <=129 mg/dL Chol/HDL Ratio, POC 1.5 NONE Non-HDL Cholesterol, POC 107 NONE mg/dL Cholesterol Total, POC 160 30 - 199 mg/dL Capillary blood 10/20/2024 1 0:29 AM CDT us Brenna Smith MD POINT OF CARE TEST O RDERABLES Final Result * Dexa Axial and Forearm Bone Density Scan (04/02/2020 11:30 AM GAS APPLIANCE INSTALLER) Anatomical Region Laterality Modality Wrist, Body N/A Radiographic Dixie ging Narrative 04/03/2020 4:35 PM GAS APPLIANCE INSTALLER Patient Name: Jolene Fernandez Date of : 1950 Date of scan: 04/02/2020 Bone mineral density was performed on a [employer] Discovery Densitometer. Machine Cross-calibration and Precision studies have been performed with a least significant change of 0.024 g/cm at the spine, 0.020 g/cm at the total proximal femur, and 0.014g/cm at the forearm. HISTORY: This is a 69 y.o. postmenopausal female with a history of breast cancer. Currently on treatment with vitamin D. History of tobacco use: Social History Tobacco Use Smoking Status Never Smoker INDICATIONS: Menopause status and screening for osteoporosis. FINDINGS: BONE MINERAL DENSITY OF THE LUMBAR SPINE Bone Mineral Density (BMD) of the lumbar spine was measured from L1-L4 and the average density was calculated to be 1.246 gm/cm. This corresponds to a T-score standard deviations from the mean of young adults of 1.8. There is no previous study available for comparison. There is moderate degenerative sclerosis that may result in overestimation of BMD at this site. BONE MINERAL DENSITY OF THE PROXIMAL FEMUR Bone Mineral Density (BMD) of the left hip total was found to be 1.115 gm/cm2. This corresponds to a T-score standard deviations from the mean of young adults of 1.4. Femoral neck is 0.794 gm/cm2 with a T-score of -0.5. There is no previous study available for comparison. BONE MINERAL DENSITY OF THE FOREARM Bone Mineral density (BMD) of the left proximal 1/3 of the radius measures 0.716gm/cm2. This corresponds to a T-score standard deviations from the mean of young adults of 0.4. There is no previous study available for comparison. A forearm bone density study was performed due to the possibility of hyperparathyroidism. SUMMARY: Bone mineral density is near the young adult normal mean with no increased risk for fracture. ADDITIONAL COMMENTS: If the patient has a history of a fragility fracture, a fracture that occurred with trauma equivalent to a fall from a standing position or less, then the diagnosis is osteoporosis. The risk of osteoporotic fracture increases approximately 2-fold for each 1.0 SD decrease in T-score. However, low bone density is not the only risk factor for fracture. Other factors include patient s age, previous osteoporotic fracture or prior fracture as an adult, loss of height of greater than 2 inches, corticosteroid use, risk of falling, risk of injury, and family history of osteoporosis. Not everyone with low bone mineral density has osteoporosis. Osteomalacia and other metabolic bone disorders should also be considered where indicated. Patients who have osteoporosis should be evaluated for specific diseases and conditions (secondary causes) that may cause or contribute to bone loss. Consider repeating this study in 1-2 years to assess the patient s response to treatment, if applicable. It is recommended that any follow up exam be performed on the same machine if possible for better accuracy. DEFINITIONS: Osteoporosis: BMD at or below -2.5 T-score Osteopenia (low bone mass): BMD between -1.0 and-2.5 T-score. The Bone Health Program adopts the following WHO definitions: Osteoporosis: BMD below -2.5 S.D. as compared to the BMD of young normal adults. Osteopenia or Low Bone Mass: BMD between -1.0 and -2.5 S.D. below the BMD of young normal adults. Normal Bone Density: BMD equal to or greater than -1.0 S.D. as compared to the BMD of young normal adults. References: 1) Scotty, Annals of Internal Medicine 114(11): 919-923 (1990) 2) Huerta, Lancet 341 : 72-75 (1992) 3) Black, Journal Bone and Mineral Research 7(6): 633-8 (1991) 4) Mikael, Journal Bone and Mineral Research 8(10):1227-33 (1992) The history and data sections of the bone mineral density scan were prepared by Estela Dhillon who is accredited by the International Society of Clinical Densitometry. The overall patient assessment and scan interpretation were performed by Brady Paez M.D. who is certified by the International Society of Clinical Densitometry. [id number] Tammy Nolan MD IMG DXA PROCEDURES Final R esult from Last 3 Months or Most Recently Relevant to Health Maintenance [place] [address] MEDICARE [place] [address] COMMERCIAL GENERIC MEDICARE AETNA SENIOR SUPPLEMENT [employer] [facility] [address] [place] [address] MEDICARE AETNA SENIOR SUPPLEMENT [address] Hired MEDICARE AETNA SENIOR SUPPLEMENT July JAROD MATOS [id number] MEDICARE COMMERCIAL GENERIC Advance Directives For more information, please contact: [phone] * Full Code (Latest Code Status on File) Date Activated Date Inactivated Comments 06/24/2018 1:06 PM 07/20/2018 7:33 PM Care Teams Circuit Board Drafter Relationship Specialty Start Date End Date Rigoberto Robles MD PCP - General 05/09/07 Karla Marx MD Referring Physician Cardiology 03/07/18 Jeffrey Skinner MD [address] [place] [address] Referring Physician Obstetrics and Gynecology 07/19/20 Marlo Joyce MD [phone] [place] [address] Surgeon Cardiothoracic Surgery 07/19/20
--- OUTSIDE RECORDS SUMMARY | 2025-01-13 13:18 | XMS_ITS | Clinical Summary ---
Author Organization [facility] Address [address] [place] [address] Care Team Providers Care Media Relations Director Name Role Phone Rigoberto Robles MD Primary Care Provider [phone] Allergies Active Allergy Reactions Criticality Noted Date Comments Heparin Blood Disorder Medium 08/05/2018 Red Dye Cough Low Rivaroxaban Other (See Comments) Low 07/29/2018 Pt states she bled out [place] Shortness of Breath/Wheezing High Medications albuterol HFA 90 mcg inhaler Take 2 Puffs by inhalation every 6 hours as needed for Shortness of Breath. Active aspirin (ECOTRIN EC) 81 mg Tablet, Delayed Release (E.C.) Take 81 mg by mouth daily. Active atorvastatin (LIPITOR) 40 mg tablet Take 40 mg by mouth late in the day. Active fexofenadine (JOSEPHINE) 180 mg tablet Take 180 mg by mouth daily. Active furosemide (LASIX) 20 mg tablet Take 20 mg by mouth daily. Active metoprolol succinate (TOPROL XL) 200 mg Extended Release 24 hour tablet Take 200 mg by mouth daily. Active multivitamin (DAILY-CHARLI) tablet Take 1 Tablet by mouth daily. Active FLUZONE HIGH-DOSE , PF, 180 mcg/0.5 mL Syringe syringe ADM 0.5ML IM UTD 0 03/08/20 1 8 Active acetaminophen (TYLENOL) 325 mg tablet Take 650 mg by mouth. 9 Active Ascorbate Calcium 500 mg Tablet 500 mg. Active docusate sodium (COLACE) 100 mg capsule Take 100 mg by mouth. 9 Active Cholecalciferol , Vitamin D3, 2,000 unit Capsule 2,000 Units. Active ferrous gluconate 236 mg (27 mg iron) Tablet 3 (three) times a day 3 tab daily Active loratadine (CLARITIN) 10 mg tablet Take 10 mg by mouth. Active potassium chloride (K-TAB) 10 mEq Extended Release tablet Take 10 mEq by mouth. 9 Active warfarin (COUMADIN) 2 mg tablet Take as directed. Coumadin dosing adjustments will be directed by your oncologist after Dr. oJyce see's you on 07/22. 9 Active warfarin (COUMADIN) 3 mg tablet Take 6 mg by mouth. 9 Active polyethylene glycol (MIRALAX) 17 gram Powder in Packet Take 17 Grams by mouth. 9 Active oxyCODONE (ROXICODONE) 5 mg tablet Take 5 mg by mouth. 9 Active amLODIPine (NORVASC) 5 mg tablet TAKE 1 TABLET BY MOUTH EVERY DAY 9 Active ASCORBIC ACID, VITAMIN C, ORAL Take 1 Tablet by mouth. Active Active Problems Problem Noted Date Diagnosed Date Hypercalcemia 11/20/2019 Atrial fibrillation 05/22/2019 H/O total hysterectomy 08/23/2017 H/O total knee replacement 08/23/2017 History of right mastectomy 08/23/2017 H/O tubal ligation 08/23/2017 Iron deficiency anemia 08/23/2017 Morbid obesity with body mass index of 40.0-49.9 08/23/2017 Family History Medical History Relation Name Comments Heart Disease Brother High Cholesterol Brother Hypertension Brother Cancer Father Heart Disease Father High Cholesterol Father Hypertension Father Anemia Mother Heart Disease Mother Hypertension Mother Stroke Mother Colon Cancer Paternal Grandfather Anemia Sister Breast Cancer Sister Depression Sister Hypertension Sister Relation Name Status Comments Brother Father Mother Paternal Grandfather Sister Social History Tobacco Use Types Packs/Day Years Used Date Smoking Tobacco: Never Alcohol Use Standard Drinks/Week Comments No 0 (1 standard drink = 0.6 oz pur e alcohol) Comments No Sex and Gender Information Value Date Recorded Sex Assigned at Not on file Legal Sex Female 8:59 AM CDT Gender Identity Not on file Sexual Orientation Not on file Last Filed Vital Signs Vital Sign Reading Time Taken Comments Blood Pressure 152/105 11/20/2019 11:47 AM CDT 1ST BP 158/99 HR 87 Pulse 88 11/20/2019 11:47 AM CDT Temperature 36.7 C (98.1 F) 11/20/2019 11:47 AM CDT Respiratory Rate 18 11/21/2017 11:3 2 AM CDT Oxygen Saturation 97% 11/20/2019 11: 47 AM CDT Inhaled Oxygen Concentration - - Weight 100.2 kg (220 lb 12.8 oz) 11/20/2019 11:47 AM CDT Height 147.3 cm (4' 10) 11/20/2019 11: 47 AM CDT Body Mass Index 46.15 11/20/2019 11:47 AM CDT Plan of Treatment Health Maintenance Due Date Last Done Comments DTAP/TDAP/TD VACCINES (1 - Tdap) 1969 PNEUMOCOCCAL VACCINE 50+ YEA RS (1 of 2 - PCV) 1969 FIT-DNA Q 3 years 1995 FIT/FOBT Q 1 year 1995 ZOSTER VACCINE (1 of 2) 2000 RSV VACCINE (60+ or ) (1 - Risk 60-74 years 1-dose series) 2010 BREAST CANCER SCREENING 06/05/2020 06/05/19 20, 06/05/2019, 06/05/2019, Additional history exists Flex Sig/CT Colonography Q 5 years 04/10/20222016 INFLUENZA VACCINE (#1) 2024 OSTEOPOROSIS SCREENING 04/02/2025 04/02/2020 COLORECTAL SCREENING 04/10/2027 04/10/2017, 06/12/19 17 Colorectal Cancer Screening 04/10/2027 Procedures Procedure Name Priority Date/Time Associated Diagnosis Comments MAMMO BILAT DIAGNOSTIC Routine 06/05/2019 from Last 3 Months or Most Recently Relevant to Health Maintenance Results * MAMMO BILAT DIAGNOSTIC (06/05/2019) Anatomical Region Laterality Modality Breast Bilateral Mammography us Abstract Provider MAMMO ORDERABLES Final Result from Last 3 Months or Most Recently Relevant to Health Maintenance Insurance MEDICARE PART A AND B AETNA MEDICARE SUPP AESSI Care Teams Media Relations Director Relationship Specialty Start Date End Date Rigoberto Robles MD [address] [place] [id number] PCP - General Family Practice 08/23/17
--- NOTE | 2025-01-13 14:28 | ECG_ITS ---
Test Date: 2025-01-13 14:33:56 Measurements Intervals [place] Rate: 70 P: 203 HI: 303 QRS: -55 QRSD: 133 T: 78 QT: 421 QTc: 456 Interpretive Statements ELECTRONIC ATRIAL PACEMAKER RIGHT BUNDLE BRANCH BLOCK [120+ ms QRS DURATION, UPRIGHT V1, 40+ ms S IN I/aVL/V4/V5/V6] LEFT ANTERIOR FASCICULAR BLOCK [QRS AXIS <= -45, QR IN I, RS IN II] LEFT VENTRICULAR HYPERTROPHY AND ST-T CHANGE [VOLTAGE CRITERIA PLUS ST/T ABNORMALITY] ABNORMAL ECGNo previous ECG available for comparison Electronically Signed On 01-13-2025 16:09:45 CDT by Geoff Zavala M.D.
--- OUTSIDE RECORDS SUMMARY | 2025-01-13 14:58 | XMS_ITS ---
Author Organization [facility] Address [address] [place] [address] Care Team Providers Care Machinist 2Nd Shift Name Role Phone Rigoberto Robles MD Primary Care Provider Karla Marx MD Unavailable [phone] Jeffrey Skinner MD Unavailable Marlo Joyce MD Unavailable Active Problems Problem Noted Date Diagnosed Date Hx of CABG 10/15/2023 Pacemaker 01/04/2023 Overview (10/04/2023): Medtronic Clarissa Dual Pacemaker Dx; SSS, Afib, CHB. DOI 06/28/[address] [facility]. Office pacer checks yearly. Carelink remotes Q3 [...] 9 Assessment & Plan (07/20/2018 2:01 PM DIRECTOR MEDICAL WRITING): Both HIT & KARRI positive -continue coumadin -H/O Extensive DVT of LUE, arterial flow bifasic and with good flow -Vascular Surgery signed off on 07/05/2018 Assessment & Plan (07/19/2018 10:17 AM DIRECTOR MEDICAL WRITING): Both HIT & KARRI positive - DC Bival INR 2.6, continue coumadin -H/O Extensive DVT of LUE, arterial flow bifasic and with good flow -Vascular Surgery signed off on 07/05/2018 Assessment & Plan (07/16/2018 11:24 AM DIRECTOR MEDICAL WRITING): Both HIT & KARRI positive - On Bival & receiving coumadin -H/O Extensive DVT of LUE, arterial flow bifasic and with good flow -Vascular Surgery signed off on 07/05/2018 Assessment & Plan (07/13/2018 3:01 PM DIRECTOR MEDICAL WRITING): HIT +- KARRI + - On Bival- [...] closely Assessment & Plan (07/06/2018 5:02 PM DIRECTOR MEDICAL WRITING): -She has ADI, definitively. Heparin is listed as an allergy. Make sure to avoid all heparin flushes -Continue bivalrudin -Given relative lack of experience with DOACs in ADI, we would recommend bridging to warfarin when out of the acute phase -Would start warfarin when platelets have been >100 x 2 (per [facility] protocol) --- needs to bridge to a therapeutic INR while on bivalrudin -The starting dose of warfarin should be no more than 5mg -We will follow up with the correct bridging protocol as that time gets closer Assessment & Plan (07/12/2018 10:34 AM DIRECTOR MEDICAL WRITING): HIT +- KARRI + - On Bival- [...] 07/03/2018 Assessment & Plan (07/20/2018 2:03 PM DIRECTOR MEDICAL WRITING): HIT positive - Hematology recommendations appreciated -Ongoing [...] manage Assessment & Plan (07/19/2018 10:18 AM DIRECTOR MEDICAL WRITING): HIT positive - Hematology recommendations appreciated -Ongoing Coumadin - Dr. Joyce wants coumadin not Doac due to her renal function - DC Bival - started coumadin 3/2, PLT 127K Coumadin dose = 6 mg tonight (Today's INR = 2.6) Assessment & Plan (07/18/2018 3:02 PM DIRECTOR MEDICAL WRITING): HIT positive - Hematology recommendations appreciated -Ongoing bival & Coumadin - Dr. Joyce wants coumadin not Doac due to her renal function - PTT therapeutic on bivalirudin - started coumadin 3/2, PLT 100K Coumadin dose = 7.5 mg tonight (Today's INR = 1.66) Assessment & Plan (07/13/2018 3:02 PM DIRECTOR MEDICAL WRITING): HIT positive - Hematology initial recommendations for [...] drip Assessment & Plan (07/12/2018 10:36 AM DIRECTOR MEDICAL WRITING): HIT positive - PLT count improving 96K from 87K - Hematology consulted- recommendations for bival until plts recover ( > 100K) and then consider Coumadin or DOAC - Dr. Joyce wants coumadin not Doac due to her renal function - PTT therapeutic on bivalirudin - Will transition to Coumadin when plts > 100 K Atrial fibrillation 06/29/2018 Assessment & Plan (07/20/2018 1:59 PM DIRECTOR MEDICAL WRITING): Post-op paroxysmal atrial fibrillation Currently paced per recent pacemaker placement Amiodarone therapy continues at 200 mg daily DC Bival gtt INR 2.42 on coumadin Platelets ~ 111 K today Goal INR ~ 2 Assessment & Plan (07/19/2018 10:16 AM DIRECTOR MEDICAL WRITING): Post-op paroxysmal atrial fibrillation Currently paced per recent pacemaker placement Amiodarone therapy continues at 200 mg daily DC Bival gtt INR 2.6 Platelets ~ 127 K today Goal INR ~ 2 Assessment & Plan (07/16/2018 11:23 AM DIRECTOR MEDICAL WRITING): Post-op paroxysmal atrial fibrillation Currently paced per recent pacemaker placement Amiodarone therapy continues at 200 mg daily Ongoing bivalirudin drip & coumadin Platelets ~ 100 K today Goal INR ~ 2 Assessment & Plan (07/13/2018 2:59 PM DIRECTOR MEDICAL WRITING): Post-op paroxysmal atrial fibrillation - currently A-paced - continue Amiodarone 200 mg po daily - coumadin started 07/13 with PLT of 96 -> down to 88 3/2 -> continue coumadin per Dr. Joyce - continue heparin drip until therapeutic INR Assessment & Plan (07/12/2018 10:31 AM DIRECTOR MEDICAL WRITING): Post-op paroxysmal atrial fibrillation - currently A-paced - continue Amiodarone 200 mg po daily - unable to initiate anticoagulation until PLT > 100k -> PLT 96 today, will discuss with Dr. Joyce timing of starting AC Chronic renal insufficiency 06/25/2018 Assessment & Plan (07/20/2018 2:00 PM DIRECTOR MEDICAL WRITING): Baseline creatine ~ 1.3 Today, down to stable 1.46 from 1.49 (from 1.52 yesterday) Continue lasix on discharge Assessment & Plan (07/19/2018 10:16 AM DIRECTOR MEDICAL WRITING): Baseline creatine ~ 1.3 Today, down to 1.49 (from 1.52 yesterday) Daily BMPs continue Ongoing diuresis with lasix Assessment & Plan (07/18/2018 3:02 PM DIRECTOR MEDICAL WRITING): Baseline creatine ~ 1.3 Today, down to 1.52 (from 1.49 yesterday) Daily BMPs continue Ongoing diuresis with lasix Assessment & Plan (07/13/2018 3:00 PM DIRECTOR MEDICAL WRITING): Looks like baseline is around 1.3. - Creatinine bumped to 1.92 but repeat 1.55 - continue Lasix which was restarted on 07/11 - Will continue to monitor Assessment & Plan (07/12/2018 10:32 AM DIRECTOR MEDICAL WRITING): Looks like baseline is around 1.3. - Creatinine down from 1.87 to 1.59 to 1.48. - Lasix restarted yesterday (07/11) - Will continue to monitor Assessment & Plan (06/27/2018 7:34 PM DIRECTOR MEDICAL WRITING): Gentle diuresis for FBG even to -500mL. -renal dosing for medications -Cr down to 1.35 from 1.5 -CTM Acute blood loss anemia 06/25/2018 Assessment & Plan (07/20/2018 1:59 PM DIRECTOR MEDICAL WRITING): H/H stable - continue iron supplementation Assessment & Plan (07/19/2018 9:59 AM DIRECTOR MEDICAL WRITING): H/H stable - continue iron supplementation -continue daily CBCs Assessment & Plan (07/16/2018 8:27 AM DIRECTOR MEDICAL WRITING): H/H stable - continue iron supplementation -continue daily CBCs Assessment & Plan (07/13/2018 2:58 PM DIRECTOR MEDICAL WRITING): H/H stable - continue iron supplementation - continue to monitor Assessment & Plan (07/12/2018 10:08 AM DIRECTOR MEDICAL WRITING): H/H stable at 8.5/27.1 - continue iron supplementation Assessment & Plan (06/28/2018 2:24 PM DIRECTOR MEDICAL WRITING): Acute blood loss anemia secondary to cardiac surgery. Has not required blood in past 48 hours, currently downtrending. - has 1 u T+C on 06/25 Post-surgical complete heart block 06/25/2018 Assessment & Plan (07/20/2018 2:01 PM DIRECTOR MEDICAL WRITING): S/p PPM placement 0n 06/28/2018 AAIR-DDDR - Medtronic changed lower rate to 80 Pacer site without swelling or drainage Assessment & Plan (07/19/2018 10:18 AM DIRECTOR MEDICAL WRITING): S/p PPM placement 0n 06/28/2018 AAIR-DDDR - Medtronic changed lower rate to 80 Pacer site without swelling or drainage Assessment & Plan (07/16/2018 11:17 AM DIRECTOR MEDICAL WRITING): S/p PPM placement 0n 06/28/2018 AAIR-DDDR - Medtronic changed lower rate to 80 Pacer site without swelling or drainage Assessment & Plan (07/13/2018 3:01 PM DIRECTOR MEDICAL WRITING): S/p PPM placement AAIR-DDDR - Medtronic changed lower rate to 80 Pacer site without swelling or drainage Assessment & Plan (07/10/2018 2:32 PM DIRECTOR MEDICAL WRITING): S/p PPM placement AAIR-DDDR - Medtronic changed lower rate to 80 Pacer site without swelling or drainage Coronary artery disease involving ak chin heart 0 06/20/2018 Overview (06/20/2018): Added automatically from request for surgery [id number] Assessment & Plan (07/20/2018 2:01 PM DIRECTOR MEDICAL WRITING): S/p CABG x 1 On 06/25/2018 Continue ASA, statin. BB, diuresis on discharge INR 2.42 today, discharge on coumadin to 6mg Discharge home today -> follow-up with Dr. Joyce on 07/22/2018 Assessment & Plan (07/19/2018 10:17 AM DIRECTOR MEDICAL WRITING): S/p CABG x 1 On 06/25/2018 Post op care (telemetry, I & O, daily weights, medication adjustments) Ongoing- PT/OT/OOB Continue ASA, statin. BB, diuresis INR 2.6 today, decrease coumadin to 6mg, DC Bival gtt Assessment & Plan (07/16/2018 11:11 AM DIRECTOR MEDICAL WRITING): S/p CABG x 1 On 06/25/2018 Post op care (telemetry, I & O, daily weights, medication adjustments) Ongoing- PT/OT/OOB Continue ASA, statin. BB, diuresis Waiting for therapeutic INR (see below) Assessment & Plan (07/13/2018 3:00 PM DIRECTOR MEDICAL WRITING): S/p CABG x 1 06/25/2018 - Continue post operative care - Increase activity as tolerated - PT/OT/OOB - Continue ASA, statin. BB, diuresis - discharge planning -> possibly 07/15/18 Assessment & Plan (06/28/2018 2:24 PM DIRECTOR MEDICAL WRITING): Coronary artery disease is improving with treatment. S/p CABG - consider BB and HAMIDA/ARB once tolerating BP well off pressors -cont aspirin and statin Assessment & Plan (07/12/2018 10:33 AM DIRECTOR MEDICAL WRITING): S/p CABG x 1 06/25/2018 - Continue post operative care - Increase activity as tolerated - PT/OT/OOB - Continue ASA, statin. BB, diuresis - discharge planning -> possibly 07/15/18 Diastolic heart failure 04/18/2018 Assessment & Plan (07/20/2018 2:01 PM DIRECTOR MEDICAL WRITING): Most recent echo on 07/02 with results including: EF=62%.Diastolic function: indeterminate Continue daily lasix Ongoing weight trends. Assessment & Plan (07/19/2018 10:17 AM DIRECTOR MEDICAL WRITING): Most recent echo on 07/02 with results including: EF=62%.Diastolic function: indeterminate Continue daily lasix Ongoing weight trends. Assessment & Plan (07/16/2018 11:17 AM DIRECTOR MEDICAL WRITING): Most recent echo on 07/02 with results [...] 03/12/2017 Assessment & Plan (07/20/2018 2:01 PM DIRECTOR MEDICAL WRITING): BMI = 53 on admission Bariatric equipment & Fall precautions continue. Assessment & Plan (07/19/2018 10:17 AM DIRECTOR MEDICAL WRITING): BMI = 53 on admission Bariatric equipment & Fall precautions continue. Assessment & Plan (07/16/2018 11:20 AM DIRECTOR MEDICAL WRITING): BMI = 53 on admission Bariatric equipment & Fall precautions continue. Obstructive sleep apnea, adult 03/12/2017 Assessment & Plan (07/20/2018 2:01 PM DIRECTOR MEDICAL WRITING): Home cpap Tolerating well Assessment & Plan (07/14/2018 1:42 PM DIRECTOR MEDICAL WRITING): Home cpap Tolerating well Assessment & Plan (07/13/2018 3:01 PM DIRECTOR MEDICAL WRITING): Home cpap Tolerating well Assessment & Plan (06/28/2018 2:23 PM DIRECTOR MEDICAL WRITING): Extubated night of 06/25 - cont CPAP at night - 4L bleed, on home machine Assessment & Plan (07/11/2018 10:49 AM DIRECTOR MEDICAL WRITING): Home cpap Tolerating well Asthma 09/21/2013 Overview [...] 07/16/2018 Assessment & Plan (07/16/2018 8:30 AM DIRECTOR MEDICAL WRITING): CXR from yesterday with read pending CXR from 07/11 w/ read = There is mild bibasilar atelectasis. There is no pleural effusion, pulmonary edema, focal consolidation, or pneumothorax. Receiving ongoing lasix Will DC this problem and continue diastolic heart problem Assessment & Plan (07/13/2018 3:04 PM DIRECTOR MEDICAL WRITING): Last dose of lasix 07/08 due to HARISH -> restart lasix 20mg PO daily on 07/11 - CXR 07/11 negative Assessment & Plan (07/12/2018 10:38 AM DIRECTOR MEDICAL WRITING): Last dose of lasix /25 due to HARISH -> restart lasix 20mg PO daily yesterday (07/11) - CXR 07/11 negative Leukocytosis 06/27/2018 07/10/2018 Assessment & Plan (07/08/2018 11:41 AM DIRECTOR MEDICAL WRITING): WBC WNL Sternal wound C/D/I Remains afebrile. Prophylactic antibiotics d/c today Assessment & Plan (06/27/2018 7:41 PM DIRECTOR MEDICAL WRITING): Persistent leukocytosis. Remains afebrile. - New cx pending - WBC downtrended from 20->18 06/27 Postoperative cardiogenic shock 05/17/2017 06/29/2018 Assessment & Plan (06/28/2018 2:23 PM DIRECTOR MEDICAL WRITING): 2/3 S/p bioAVR without AI at conclusion of case -Epi weaned prior to pacemaker insertion - has heart block, EP c/s'd - pacemaker placement today - to TTF after procedure if tolerates well Assessment & Plan (06/24/2018 4:22 PM DIRECTOR MEDICAL WRITING): Plan for AVR in AM Preop labs ordered. NPO after MN CAD (coronary artery disease) 05/17/2017 07/16/2018
--- OUTSIDE RECORDS SUMMARY | 2025-01-13 14:59 | XMS_ITS | Encounter Summary ---
Author Organization [facility] Address [address] [place] [address] Phone Care Team Providers Care Farm Specialist Name Role Phone Rigoberto Robles MD Primary Care Provider [phone] Karla Marx MD Unavailable [phone] Jeffrey Skinner MD Unavailable Marlo Joyce MD Unavailable Encounter Details Date Type Department Care Team (Late st Contact Info) Description 02/14/2018 Telephone [facility] Cardiology [address] [facility] Advanced Medicine 8th [place] [address] [place] [address] Karla Marx MD [address] [place] [address] Social History Tobacco Use Types Packs/Day Years Used Date Smoking Tobacco: Never Smokeless Tobacco: Never Alcohol Use Standard Drinks/Week Comments No 0 (1 standard drink = 0.6 oz pur e alcohol) Comments No Sex and Gender Information Value Date Recorded Sex Assigned at Not on file 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 Gender Identity Not on file Sexual Orientation Not on file documented as of this encounter Plan of Treatment Not on file documented as of this encounter Visit Diagnoses Not on filedocumented in this encounter Care Teams Farm Specialist Relationship Specialty Start Date End Date Rigoberto Robles MD PCP - General 05/09/07 Karla Marx MD Referring Physician Cardiology 03/07/18 Jeffrey Skinner MD [address] [place] [address] Referring Physician Obstetrics and Gynecology 07/19/20 Marlo Joyce MD [address] [place] [address] Surgeon Cardiothoracic Surgery 07/19/20 documented as of this encounter
--- OUTSIDE RECORDS SUMMARY | 2025-01-13 14:59 | XMS_ITS | Clinical Summary ---
Author Organization [facility] Address [address] [place] [address] Care Team Providers Care Farm Butcher Name Role Phone Rigoberto Robles MD Primary Care Provider [phone] Allergies Active Allergy Reactions Criticality Noted Date Comments Heparin Blood Disorder Medium 08/05/2018 Red Dye Cough Low Rivaroxaban Other (See Comments) Low 07/29/2018 Pt states she bled out [place] Shortness of Breath/Wheezing High Medications albuterol HFA [...] be directed by your oncologist after Dr. Joyce see's you on 07/22. 9 Active warfarin [...] B AETNA MEDICARE SUPP AESSI Care Teams Farm Butcher Relationship Specialty Start Date End Date Rigoberto Robles MD [address] [place] [id number] PCP - General Family Practice 08/23/17
--- OUTSIDE RECORDS SUMMARY | 2025-01-13 14:59 | XMS_ITS | Clinical Summary ---
Author Organization [facility] Address [address] [place] [address] Phone Care Team Providers Care Lace Cutter Name Role Phone Unavailable Primary Care Provider [...] on file Legal Sex Female 9:27 AM [facility] Gender Identity Not on file Sexual [...]
--- OUTSIDE RECORDS SUMMARY | 2025-01-13 14:59 | XMS_ITS | Encounter Summary ---
Author Organization [facility] [place] [facility] Address [address] [place] [address] Phone Care Team Providers Care Meeting Specialist Name Role Phone Rigoberto Robles MD Primary Care Provider Karla Marx MD Unavailable Jeffrey Skinner MD Unavailable [phone] Marlo Joyce MD Unavailable [phone] Encounter Details Date Type Department Care Team (Latest Contact Info) Description 06/12/2016 Orders Only [facility] Scanning, Provider Social History Tobacco Use Types Packs/Day Years Used Date Smoking Tobacco: Never Assessed Comments Unknown Sex and Gender Information Value Date Recorded Sex Assigned at Not on file 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
--- OUTSIDE RECORDS SUMMARY | 2025-01-13 14:59 | XMS_ITS | Clinical Summary ---
Author Organization [facility] Address [address] [place] [address] Care Team Providers Care Dyeing Machine Tender Name Role Phone Rigoberto Robles MD Primary Care Provider Karla Marx MD Unavailable [phone] Jeffrey Skinner MD Unavailable [phone] Marlo Joyce MD Unavailable [phone] Allergies Active Allergy Reactions Criticality Noted Date Comments Heparin HIT High 07/04/2018 Red Dye Cough Low [place] Shortness of breath High Rivaroxaban Other (See [...] CABG 10/15/2023 Pacemaker 01/04/2023 Overview (10/04/2023): Medtronic Chaires Dual Pacemaker Dx; SSS, Afib, CHB. DOI 06/28/18 Dr. Wyatt Salvador [facility]. Office pacer checks yearly. Carelink remotes [...] 9 Assessment & Plan (07/20/2018 2:01 PM AUDIO VISUAL MANAGER): Both HIT & KARRI positive -continue coumadin -H/O Extensive DVT of LUE, arterial flow bifasic and with good flow -Vascular Surgery signed off on 07/05/2018 Assessment & Plan (07/19/2018 10:17 AM AUDIO VISUAL MANAGER): Both HIT & KARRI positive - DC Bival INR 2.6, continue coumadin -H/O Extensive DVT of LUE, arterial flow bifasic and with good flow -Vascular Surgery signed off on 07/05/2018 Assessment & Plan (07/16/2018 11:24 AM AUDIO VISUAL MANAGER): Both HIT & KARRI positive - On Bival & receiving coumadin -H/O Extensive DVT of LUE, arterial flow bifasic and with good flow -Vascular Surgery signed off on 07/05/2018 Assessment & Plan (07/13/2018 3:01 PM AUDIO VISUAL MANAGER): HIT +- KARRI + - On Bival- [...] closely Assessment & Plan (07/06/2018 5:02 PM AUDIO VISUAL MANAGER): -She has ADI, definitively. Heparin is listed as an allergy. Make sure to avoid all heparin flushes -Continue bivalrudin -Given relative lack of experience with DOACs in ADI, we would recommend bridging to warfarin when out of the acute phase -Would start warfarin when platelets have been >100 x 2 (per [facility] protocol) --- needs to bridge to a therapeutic INR while on bivalrudin -The starting dose of warfarin should be no more than 5mg -We will follow up with the correct bridging protocol as that time gets closer Assessment & Plan (07/12/2018 10:34 AM AUDIO VISUAL MANAGER): HIT +- KARRI + - On Bival- [...] 07/03/2018 Assessment & Plan (07/20/2018 2:03 PM AUDIO VISUAL MANAGER): HIT positive - Hematology recommendations appreciated -Ongoing [...] manage Assessment & Plan (07/19/2018 10:18 AM AUDIO VISUAL MANAGER): HIT positive - Hematology recommendations appreciated -Ongoing Coumadin - Dr. Joyce wants coumadin not Doac due to her renal function - DC Bival - started coumadin 07/13, PLT 127K Coumadin dose = 6 mg tonight (Today's INR = 2.6) Assessment & Plan (07/18/2018 3:02 PM AUDIO VISUAL MANAGER): HIT positive - Hematology recommendations appreciated -Ongoing bival & Coumadin - Dr. Joyce wants coumadin not Doac due to her renal function - PTT therapeutic on bivalirudin - started coumadin 3, PLT 100K Coumadin dose = 7.5 mg tonight (Today's INR = 1.66) Assessment & Plan (07/13/2018 3:02 PM AUDIO VISUAL MANAGER): HIT positive - Hematology initial recommendations for [...] drip Assessment & Plan (07/12/2018 10:36 AM AUDIO VISUAL MANAGER): HIT positive - PLT count improving 96K from 87K - Hematology consulted- recommendations for bival until plts recover ( > 100K) and then consider Coumadin or DOAC - Dr. Joyce wants coumadin not Doac due to her renal function - PTT therapeutic on bivalirudin - Will transition to Coumadin when plts > 100 K Atrial fibrillation 06/29/2018 Assessment & Plan (07/20/2018 1:59 PM AUDIO VISUAL MANAGER): Post-op paroxysmal atrial fibrillation Currently paced per recent pacemaker placement Amiodarone therapy continues at 200 mg daily DC Bival gtt INR 2.42 on coumadin Platelets ~ 111 K today Goal INR ~ 2 Assessment & Plan (07/19/2018 10:16 AM AUDIO VISUAL MANAGER): Post-op paroxysmal atrial fibrillation Currently paced per recent pacemaker placement Amiodarone therapy continues at 200 mg daily DC Bival gtt INR 2.6 Platelets ~ 127 K today Goal INR ~ 2 Assessment & Plan (07/16/2018 11:23 AM AUDIO VISUAL MANAGER): Post-op paroxysmal atrial fibrillation Currently paced per recent pacemaker placement Amiodarone therapy continues at 200 mg daily Ongoing bivalirudin drip & coumadin Platelets ~ 100 K today Goal INR ~ 2 Assessment & Plan (07/13/2018 2:59 PM AUDIO VISUAL MANAGER): Post-op paroxysmal atrial fibrillation - currently A-paced - continue Amiodarone 200 mg po daily - coumadin started 3/ with PLT of 96 -> down to 88 3/2 -> continue coumadin per Dr. Joyce - continue heparin drip until therapeutic INR Assessment & Plan (07/12/2018 10:31 AM AUDIO VISUAL MANAGER): Post-op paroxysmal atrial fibrillation - currently A-paced - continue Amiodarone 200 mg po daily - unable to initiate anticoagulation until PLT > 100k -> PLT 96 today, will discuss with Dr. Joyce timing of starting AC Chronic renal insufficiency 06/25/2018 Assessment & Plan (07/20/2018 2:00 PM AUDIO VISUAL MANAGER): Baseline creatine ~ 1.3 Today, down to stable 1.46 from 1.49 (from 1.52 yesterday) Continue lasix on discharge Assessment & Plan (07/19/2018 10:16 AM AUDIO VISUAL MANAGER): Baseline creatine ~ 1.3 Today, down to 1.49 (from 1.52 yesterday) Daily BMPs continue Ongoing diuresis with lasix Assessment & Plan (07/18/2018 3:02 PM AUDIO VISUAL MANAGER): Baseline creatine ~ 1.3 Today, down to 1.52 (from 1.49 yesterday) Daily BMPs continue Ongoing diuresis with lasix Assessment & Plan (07/13/2018 3:00 PM AUDIO VISUAL MANAGER): Looks like baseline is around 1.3. - Creatinine bumped to 1.92 but repeat 1.55 - continue Lasix which was restarted on 07/11 - Will continue to monitor Assessment & Plan (07/12/2018 10:32 AM AUDIO VISUAL MANAGER): Looks like baseline is around 1.3. - Creatinine down from 1.87 to 1.59 to 1.48. - Lasix restarted yesterday (07/11) - Will continue to monitor Assessment & Plan (06/27/2018 7:34 PM AUDIO VISUAL MANAGER): Gentle diuresis for FBG even to -500mL. -renal dosing for medications -Cr down to 1.35 from 1.5 -CTM Acute blood loss anemia 06/25/2018 Assessment & Plan (07/20/2018 1:59 PM AUDIO VISUAL MANAGER): H/H stable - continue iron supplementation Assessment & Plan (07/19/2018 9:59 AM AUDIO VISUAL MANAGER): H/H stable - continue iron supplementation -continue daily CBCs Assessment & Plan (07/16/2018 8:27 AM AUDIO VISUAL MANAGER): H/H stable - continue iron supplementation -continue daily CBCs Assessment & Plan (07/13/2018 2:58 PM AUDIO VISUAL MANAGER): H/H stable - continue iron supplementation - continue to monitor Assessment & Plan (07/12/2018 10:08 AM AUDIO VISUAL MANAGER): H/H stable at 8.5/27.1 - continue iron supplementation Assessment & Plan (06/28/2018 2:24 PM AUDIO VISUAL MANAGER): Acute blood loss anemia secondary to cardiac surgery. Has not required blood in past 48 hours, currently downtrending. - has 1 u T+C on 06/25 Post-surgical complete heart block 06/25/2018 Assessment & Plan (07/20/2018 2:01 PM AUDIO VISUAL MANAGER): S/p PPM placement 0n 06/28/2018 AAIR-DDDR - Medtronic changed lower rate to 80 Pacer site without swelling or drainage Assessment & Plan (07/19/2018 10:18 AM AUDIO VISUAL MANAGER): S/p PPM placement 0n 06/28/2018 AAIR-DDDR - Medtronic changed lower rate to 80 Pacer site without swelling or drainage Assessment & Plan (07/16/2018 11:17 AM AUDIO VISUAL MANAGER): S/p PPM placement 0n 06/28/2018 AAIR-DDDR - Medtronic changed lower rate to 80 Pacer site without swelling or drainage Assessment & Plan (07/13/2018 3:01 PM AUDIO VISUAL MANAGER): S/p PPM placement AAIR-DDDR - Medtronic changed lower rate to 80 Pacer site without swelling or drainage Assessment & Plan (07/10/2018 2:32 PM AUDIO VISUAL MANAGER): S/p PPM placement AAIR-DDDR - Medtronic changed lower rate to 80 Pacer site without swelling or drainage Coronary artery disease involving ambler heart 0 06/20/2018 Overview (06/20/2018): Added automatically from request for surgery [id number] Assessment & Plan (07/20/2018 2:01 PM AUDIO VISUAL MANAGER): S/p CABG x 1 On 06/25/2018 Continue ASA, statin. BB, diuresis on discharge INR 2.42 today, discharge on coumadin to 6mg Discharge home today -> follow-up with Dr. Joyce on 07/22/2018 Assessment & Plan (07/19/2018 10:17 AM AUDIO VISUAL MANAGER): S/p CABG x 1 On 06/25/2018 Post op care (telemetry, I & O, daily weights, medication adjustments) Ongoing- PT/OT/OOB Continue ASA, statin. BB, diuresis INR 2.6 today, decrease coumadin to 6mg, DC Bival gtt Assessment & Plan (07/16/2018 11:11 AM AUDIO VISUAL MANAGER): S/p CABG x 1 On 06/25/2018 Post op care (telemetry, I & O, daily weights, medication adjustments) Ongoing- PT/OT/OOB Continue ASA, statin. BB, diuresis Waiting for therapeutic INR (see below) Assessment & Plan (07/13/2018 3:00 PM AUDIO VISUAL MANAGER): S/p CABG x 1 06/25/2018 - Continue post operative care - Increase activity as tolerated - PT/OT/OOB - Continue ASA, statin. BB, diuresis - discharge planning -> possibly 07/15/18 Assessment & Plan (06/28/2018 2:24 PM AUDIO VISUAL MANAGER): Coronary artery disease is improving with treatment. S/p CABG - consider BB and HAMIDA/ARB once tolerating BP well off pressors -cont aspirin and statin Assessment & Plan (07/12/2018 10:33 AM AUDIO VISUAL MANAGER): S/p CABG x 1 06/25/2018 - Continue post operative care - Increase activity as tolerated - PT/OT/OOB - Continue ASA, statin. BB, diuresis - discharge planning -> possibly 07/15/18 Diastolic heart failure 04/18/2018 Assessment & Plan (07/20/2018 2:01 PM AUDIO VISUAL MANAGER): Most recent echo on 07/02 with results including: EF=62%.Diastolic function: indeterminate Continue daily lasix Ongoing weight trends. Assessment & Plan (07/19/2018 10:17 AM AUDIO VISUAL MANAGER): Most recent echo on 07/02 with results including: EF=62%.Diastolic function: indeterminate Continue daily lasix Ongoing weight trends. Assessment & Plan (07/16/2018 11:17 AM AUDIO VISUAL MANAGER): Most recent echo on 07/02 with results [...] 03/12/2017 Assessment & Plan (07/20/2018 2:01 PM AUDIO VISUAL MANAGER): BMI = 53 on admission Bariatric equipment & Fall precautions continue. Assessment & Plan (07/19/2018 10:17 AM AUDIO VISUAL MANAGER): BMI = 53 on admission Bariatric equipment & Fall precautions continue. Assessment & Plan (07/16/2018 11:20 AM AUDIO VISUAL MANAGER): BMI = 53 on admission Bariatric equipment & Fall precautions continue. Obstructive sleep apnea, adult 03/12/2017 Assessment & Plan (07/20/2018 2:01 PM AUDIO VISUAL MANAGER): Home cpap Tolerating well Assessment & Plan (07/14/2018 1:42 PM AUDIO VISUAL MANAGER): Home cpap Tolerating well Assessment & Plan (07/13/2018 3:01 PM AUDIO VISUAL MANAGER): Home cpap Tolerating well Assessment & Plan (06/28/2018 2:23 PM AUDIO VISUAL MANAGER): Extubated night of 06/25 - cont CPAP at night - 4L bleed, on home machine Assessment & Plan (07/11/2018 10:49 AM AUDIO VISUAL MANAGER): Home cpap Tolerating well Asthma 09/21/2013 Overview (12/09/2018): Converted unresolved ICD9, potential mismatch. Other and unspecified hyperlipidemia 09/21/2013 Overview (12/09/2018): Converted unresolved ICD9, potential mismatch. Other abnormal blood chemistry 09/21/2013 Overview (12/09/2018): Converted unresolved ICD9, potential mismatch. Resolved Problems Problem Noted Date Diagnosed Date Resolved Date Volume overload 07/11/2018 07/16/2018 Assessment & Plan (07/16/2018 8:30 AM AUDIO VISUAL MANAGER): CXR from yesterday with read pending CXR from 07/11 w/ read = There is mild bibasilar atelectasis. There is no pleural effusion, pulmonary edema, focal consolidation, or pneumothorax. Receiving ongoing lasix Will DC this problem and continue diastolic heart problem Assessment & Plan (07/13/2018 3:04 PM AUDIO VISUAL MANAGER): Last dose of lasix 25 due to HARISH -> restart lasix 20mg PO daily on 07/11 - CXR 07/11 negative Assessment & Plan (07/12/2018 10:38 AM AUDIO VISUAL MANAGER): Last dose of lasix 2/25 due to HARISH -> restart lasix 20mg PO daily yesterday (07/11) - CXR 07/11 negative Leukocytosis 06/27/2018 07/10/2018 Assessment & Plan (07/08/2018 11:41 AM AUDIO VISUAL MANAGER): WBC WNL Sternal wound C/D/I Remains afebrile. Prophylactic antibiotics d/c today Assessment & Plan (06/27/2018 7:41 PM AUDIO VISUAL MANAGER): Persistent leukocytosis. Remains afebrile. - New cx pending - WBC downtrended from 20->18 06/27 Postoperative cardiogenic shock 05/17/2017 06/29/2018 Assessment & Plan (06/28/2018 2:23 PM AUDIO VISUAL MANAGER): 2/3 S/p bioAVR without AI at conclusion of case -Epi weaned prior to pacemaker insertion - has heart block, EP c/s'd - pacemaker placement today - to TTF after procedure if tolerates well Assessment & Plan (06/24/2018 4:22 PM AUDIO VISUAL MANAGER): Plan for AVR in AM Preop labs ordered. NPO after MN CAD (coronary artery disease) 05/17/2017 07/16/2018 Encounters Date Type Department Care Team Description 01/05/2025 Telephone [facility] Cardiology [address] [place] [address] [address] [place] [phone] Brenna Smith MD refill 11/19/2024 10:30 AM CDT Ancillary Procedure [facility] Cardiology [address] [place] [address] [address] [place] [phone] CHB (complete heart block) (HCC); Pacemaker; Sick sinus syndrome (HCC); Paroxysmal atrial fibrillation (HCC) 11/19/2024 Orders Only [facility] Cardiology [address] [place] [address] [place] [phone] Brenna Smith MD CHB (complete heart block) (HCC) (Primary Dx); Pacemaker; Sick sinus syndrome (HCC); Paroxysmal atrial fibrillation (HCC) 11/18/2024 Telephone [facility] Cardiology [address] [place] [address] [place] [phone] Brenna Smith MD 10/20/2024 10:30 AM CDT Office Visit [facility] Cardiology [address] [place] [address] [address] [place] [phone] Brenna Smith MD Coronary artery disease involving ambler coronary artery of ambler heart with angina pectoris (Primary Dx); Hx [...] 01/12/2017 Surgical History Surgery Date Site/Laterality Comments [place] DELIVERY ONLY Section - (Added by TW Conv) MASTECTOMY Breast Surgery Mastectomy - (Added by TW Conv) [place] ARTHROPLASTY KNEE TIBIAL PLATEAU Knee Replacement - (Added by TW Conv) [place] DILATION & CURETTAGE DX&/THER NONOBSTETRIC Dilation And [...] on file Legal Sex Female 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 Gender Identity Not on file Sexual Orientation [...] history exists Medical Devices Implanted Type Area Chain Pegger Device Identifier Shelf Expiration Date Model / Serial / Lot Medtronic Cardiac Rhythm Mgmt 5076-52 Capsurefix Novus 6.2fr 2mm 52cm Bipolar Screw In Implantable Latex Free - [id number] - [id number] Implanted:Qty: 1 on 06/28/2018 by Wyatt Salvador MD PhD at [facility] Lead Left: Chest Medtronic Cardiac Rhythm Mgmt 04/16/2020 5076-52 / [id number] / Medtronic Cardiac Rhythm Mgmt 5076-45 Capsurefix Novus 6.2fr 2mm 45cm Bipolar Screw In Implantable - [id number] - [id number] Implanted:Qty: 1 on 06/28/2018 by Wyatt Salvador MD PhD at [facility] Lead Left: Chest Medtronic Cardiac Rhythm Mgmt 04/22/2020 5076-45 / [id number] / Medtronic Cardiac Rhythm Mgmt [id number] Natalya S Mri Surescan 50.8x46.6mm 2 Chamber 7.4mm Pacemaker 22.5gm - [id number] - [id number] Implanted:Qty: 1 on 06/28/2018 by Rao Ventura MD at [facility] Pacemaker Left: Chest Wall Medtronic Cardiac Rhythm Mgmt [id number] 10/08/2018 [id number] / [id number] / Metal Knee Description:Bilateral knee r eplacement [employer] [id number] Rajat-Jordan ds Perimount Magna Ease 23mm Bioprosthesis - [id number] - [id number] Implanted:Qty: 1 on 06/25/2018 by Marlo Joyce MD at [facility] N/A: Heart [employer] 02/16/2022 [id number] 3MM / [id number] / Procedures Procedure Name Priority Date/Time Associated Diagnosis Comments DEVICE CHECK - IN OFFICE Routine 11/19/2024 10:16 AM CDT CHB (complete heart block) (HCC) Pacemaker Sick sinus syndrome (HCC) Paroxysmal atrial fibrillation (HCC) POCT LIPID PANEL Routine 10/20/2024 10:2 9 AM CDT Coronary artery disease involving ambler coronary artery of ambler heart with angina pectoris Hx of CABG DEXA AXIAL AND FOREARM BONE DENSITY SCAN Schedule Routine, Read Routine (OP Routine) 04/02/2020 11:30 AM AUDIO VISUAL MANAGER Hyperparathyroidism , primary Hypercalcemia from Last 3 Months or Most Recently Relevant to Health Maintenance Results * DEVICE CHECK - IN OFFICE (11/19/2024 10:16 AM CDT) Anatomical Region Laterality Modality Other Narrative 11/25/2024 8:24 PM CDT Medtronic dual pacemaker Dx; SSS, Afib, CHB. DOI 06/28/18 Dr. Wyatt Salvador [facility]. Office pacer checks yearly. Carelink remotes. Supervising MD: Dr Garcia. Office DDD Pacemaker evaluation demonstrated appropriate device function. Left pectoral incision well healed without signs of infection noted. Battery function: 2.96V, 5.4 years remaining battery life to ADELE. Appropriate lead measurements noted. Presenting rhythm: AP-VS. Underlying rhythm- SB 40-50 bpm. AP- 93.4%, PANTS MAKER- <0.1%. 1 Atrial high rate episode noted, [...] Forearm Bone Density Scan (04/02/2020 11:30 AM AUDIO VISUAL MANAGER) Anatomical Region Laterality Modality Wrist, Body N/A Radiographic Dixie ging Narrative 04/03/2020 4:35 PM AUDIO VISUAL MANAGER Patient Name: Jolene Fernandez Date of : 1950 Date of scan: 04/02/2020 Bone mineral density was performed on a [employer] Discovery Densitometer. Machine Cross-calibration and Precision studies [...] by the International Society of Clinical Densitometry. [id number] Tammy Nolan MD IMG DXA PROCEDURES Final R esult from Last 3 Months or Most Recently Relevant to Health [place] [address] [place]ICARE [place] [address] COMMERCIAL GENERIC MEDICARE AETNA SENIOR SUPPLEMENT [employer] [facility] [address] [place] [address] MEDICARE AETNA SENIOR SUPPLEMENT [address] MEDICARE AETNA SENIOR SUPPLEMENT July J[place]OD [place] [id number] MEDICARE COMMERCIAL GENERIC Advance Directives For more information, please contact: [phone] * Full Code (Latest Code Status on File) Date Activated Date Inactivated Comments 06/24/2018 1:06 PM 07/20/2018 7:33 PM Care Teams Dyeing Machine Tender Relationship Specialty Start Date End Date Rigoberto Robles MD PCP - General 05/09/07 Karla Marx MD Referring Physician Cardiology 03/07/18 Jeffrey Skinner MD [address] [place] [address] Referring Physician Obstetrics and Gynecology 07/19/20 Marlo Joyce MD [address] [place] [address] Surgeon Cardiothoracic Surgery 07/19/20
[2025-01-13] MEDS: SODIUM CHLORIDE 0.9% IV 1,000 ML 150 ML IV CONT (15:10)
[2025-01-13 15:42] LABS: Hematocrit 36.0 % (37.0-47.0); Hemoglobin 11.5 g/dL (12.0-15.0); Immature Granulocyte Percent A 0.4 % (0-0.5); Lymphocytes Absolute Auto 1.91 K/mm3 (0.9-3.2); Mean Corpuscular HGB Conc 31.9 g/dl (32-36); Mean Corpuscular Hemoglobin 29.0 pg (26-34); Mean Corpuscular Volume 90.9 fl (80-100); Nucleated Red Blood Cells Absolute Auto 0.000 K/mm3 (0.0-0.012); Nucleated Red Blood Cells Perc 0.0 % (0.0-0.2); Platelet Count Result 185 k/mm3 (150-375); Red Blood Count 3.96 M/mm3 (4.2-5.4); White Blood Count 9.4 K/mm3 (4.5-10.0)
[2025-01-13 15:56] LABS: Alanine Aminotransferase 27 U/L (6-35); Albumin Level 4.1 g/dL (3.5-5.1); Alkaline Phosphatase 205 U/L (38-126); Anion Gap 11 mmol/L (4-12); Aspartate Amino Transferase 36 U/L (14-36); Bilirubin,Total 0.5 mg/dL (0.2-1.3); Blood Urea Nitrogen 23 mg/dL (7-17); Calcium 10.1 mg/dL (8.4-10.2); Carbon Dioxide 22 mmol/L (22-30); Chloride 104 mmol/L (98-107); Estimated Glomerular Filt Rate 27; Glucose 112 mg/dL (65-110); Potassium 4.1 mmol/L (3.4-5.0); Sodium 137 mmol/L (137-145); Total Protein 8.1 g/dL (6.3-8.2)
[2025-01-13 16:03] LABS: Troponin I < 0.012 ng/mL (0.000-0.034)
--- NOTE | 2025-01-13 18:06 | ED.DIZZY ---
HPI - Dizziness General Chief Complaint: Dizziness Stated Complaint: lightheaedness Time Seen by Provider: 01/13/25 14:43 Source: patient Mode of arrival: ambulatory Limitations: no limitations History of Present Illness HPI Narrative: 74-year-old with a history of atrial fibrillation, hypertension , dyslipidemia here with a complains of feeling lightheaded and dizzy on and off for past 2 days. Patient states that she had a dental extraction and there were since then she is unable to eat solid food. Patient states that she has been eating mashed potatoes from [employer]. Not drinking enough fluids. Denies any chest pain. No history of nausea, vomiting or abdominal pain. She also complain of diplopia which was transient. MD elicited complaint: dizziness and lightheadedness Onset (ago): day(s) (2) Timing: gradual onset Severity: moderate Description: lightheadedness Context: other (Not eating or drinking enough water) History of similar symptoms: No Exacerbating factors: nothing Relieving factors: nothing Associated symptoms: denies other symptoms Associated neuro symptoms: diplopia Related Data Home Medications ?Medication ?Instructions ?Recorded ?Confirmed ?Last Taken ?Type aspirin 81 mg tablet,delayed 81 mg PO DAILY 06/11/19 11/27/24 Unknown History release (Adult Low Dose Aspirin) amlodipine 5 mg tablet 5 mg PO DAILY 03/07/21 11/27/24 Unknown History L.acidoph,paracasei,B.animalis 10 See Rx Instructions PO .QD 12/15/21 11/27/24 Unknown History billion cell capsule (Digestive Advantage Advanced Probiotic) ascorbate calcium (vitamin C) 500 500 mg PO DAILY 07/07/22 11/27/24 Unknown History mg tablet metoprolol succinate 50 mg 100 mg PO DAILY 07/10/23 11/27/24 Unknown History tablet,extended release 24 hr (Toprol XL) atorvastatin 80 mg tablet (Lipitor) 80 mg PO DAILY 09/24/24 11/27/24 Unknown History cetirizine 10 mg tablet (24Hour 10 mg PO DAILY PRN 09/24/24 11/27/24 Unknown History Allergy) cholecalciferol (vitamin D3) 50 100 mcg PO DAILY 09/24/24 11/27/24 Unknown History mcg (2,000 unit) capsule Allergies Allergy/AdvReac Type Severity Reaction Status Date / Time ezetimibe (From Zetia) Allergy Intermediate Rash Verified 12/31/24 20:44 red dye Allergy Intermediate Unknown Verified 12/31/24 20:44 strawberry Allergy Mild Unknown Verified 12/31/24 20:44 heparin Allergy Other Verified 12/31/24 20:44 Review of Systems Review of Systems: All systems reviewed & are unremarkable except as noted in HPI and below Constitutional: Constitutional: Reports no additional constitutional complaints Eyes: Eyes: Reports no additional eye complaints ENT: Reports system reviewed and no additional complaints, except as documented Cardiovascular: Cardiovascular: Reports no additional cardiovascular complaints Respiratory: Respiratory: Reports no additional respiratory complaints Gastrointestinal: Gastrointestinal: Reports no additional gastrointestinal complaints Musculoskeletal: Musculoskeletal: Reports no additional musculoskeletal complaints Neurologic: Reports as per HPI [facility] Past Medical History Medical History BMI 50.0-59.9, adult Need for prophylactic antibiotic Hypercalcemia Laceration of left thumb Traumatic ecchymosis of left knee History of breast cancer Atherosclerosis of coronary artery bypass graft of [place] heart without angina pectoris Elevated parathyroid hormone Atrial fibrillation Chronic kidney disease, stage 3 (moderate) Diastolic dysfunction Endometrial cancer Essential (primary) hypertension Iron deficiency anemia due to chronic blood loss Obstructive sleep apnea (adult) (pediatric) Vitamin D deficiency Surgical History Surgical History History of hysteroscopy (02/15/17) Postmenopausal bleeding, Endometrial Hypertrophy - adenocarinoma, endometriod Status post right knee replacement (12/03/13) Delivery by section (~1980) Delivery by section (~1977) H/O bilateral salpingo-oophorectomy (04/10/17) H/O: hysterectomy (04/10/17) endometrioid adenocarcinoma Aortic valve replaced History of right mastectomy (~2000) S/P AVR (aortic valve replacement) Family History Family History Father Family history of premature coronary heart disease Hypertension Family history of pancreatic cancer Sibling Family history of coronary artery disease Acute myocardial infarction Lung cancer Mother Family history of coronary artery disease Sibling Erich syndrome Depression Hypertension Other Cerebrovascular accident Diabetes mellitus Family history of Alzheimer's disease Family history of arthritis Family history of malignant neoplasm Family history of obesity Family history of seizure disorder Social History Social History Smoking status: Never smoker Second hand tobacco smoke exposure: No Alcohol intake: never Substance use: never Substance use type: does not use Do You Feel Safe in your Home?: Yes Lack of Transportation: No Lack of Food: Never True Current Housing: I Have Housing Concerned About Future Housing: No Difficulty Paying Gas/Electric Bills: No Difficulty Paying for Meds: No Currently Unemployed: No Education: High School Diploma/GED Difficulty w/ Childcare or Family Care: No Living arrangements: with family Additional living arrangements comments: Occupation/Education: retired Additional occupation/education comments: accounting Gender identity (if verbalized by the patient): Female Sexual Orientation (if Verbalized by the Patient): Straight or Heterosexual Exam Narrative: GENERAL: Well-appearing, well-nourished, and in no acute distress. HEAD: Normocephalic, atraumatic. EYES: PERRLA and EOMI. ENT: Nares clear, no rhinorrhea or epistaxis. Mucous membranes moist. NECK: Supple. CHEST: Clear to auscultation. No respiratory distress. HEART: Regular rate and rhythm. No murmur heard. Normal peripheral pulses. ABDOMEN: Soft, nontender, nondistended, normal active bowel sounds. EXTREMITIES: Normal range of motion. No edema. SKIN: Warm, dry, no rash. NEURO: No focal deficits. Alert and oriented x3. PSYCH: Normal mood and affect. Course Course Emergency Course: Informed her about the lab work, CT findings. She does feel comfortable going home. I advised her to drink Ensure twice a day, continue home medication, follow with her primary doctor. Vital Signs Vital signs: Vital Signs Temperature 36.9 C 01/13/25 13:09 Pulse Rate 98 01/13/25 13:09 Respiratory Rate 16 01/13/25 13:09 Blood Pressure 197/97 H 01/13/25 13:09 Pulse Oximetry 98 01/13/25 13:09 Temperature 36.9 C 01/13/25 13:09 Pulse Rate 83 01/13/25 17:19 Respiratory Rate 18 01/13/25 17:19 Blood Pressure 195/85 H 01/13/25 17:19 Pulse Oximetry 100 01/13/25 17:19 MDM - Dizziness Differential Diagnosis Differential diagnosis: Likely orthostatic hypotension, cerebrovascular accident and acute vestibular neuronitis Medical Records Attestation: I reviewed the patient's medical records. Lab Data Attestation: I reviewed the patient's lab results. 01/13/25 15:29 01/13/25 15:29 Labs: Lab Results 01/13/25 Range/Units 15:29 WBC 9.4 (4.5-10.0) K/mm3 RBC 3.96 L (4.2-5.4) M/mm3 Hgb 11.5 L (12.0-15.0) g/dL Hct 36.0 L (37.0-47.0) % MCV 90.9 (80-100) fl MCH 29.0 (26-34) pg MCHC 31.9 L (32-36) g/dl RDW 13.3 (11.5-14.5) % Plt Count 185 (150-375) k/mm3 MPV 8.9 (7.4-10.4) fl Immature Gran % (Auto) 0.4 (0-0.5) % Neut % (Auto) 69.0 (45.5-73.1) % Lymph % (Auto) 20.3 (18.3-44.2) % [place] % (Auto) 7.6 (2.6-8.5) % Eos % (Auto) 2.3 (0-4.4) % Baso % (Auto) 0.4 (0.2-1.2) % Lymph # (Auto) 1.91 (0.9-3.2) K/mm3 [place] # (Auto) 0.7 H (0.1-0.6) K/mm3 Eos # (Auto) 0.2 (0-0.3) K/mm3 Baso # (Auto) 0.0 (0.0-0.1) K/mm3 Abs Immat Gran (auto) 0.04 H (0.00-0.031) K/mm3 Absolute Neuts (auto) 6.5 (1.3-6.7) K/mm3 Absolute Nucleated RBC 0.000 (0.0-0.012) K/mm3 Nucleated RBC % 0.0 (0.0-0.2) % Sodium 137 (137-145) mmol/L Potassium 4.1 (3.4-5.0) mmol/L Chloride 104 (98-107) mmol/L Carbon Dioxide 22 (22-30) mmol/L Anion Gap 11 (4-12) mmol/L BUN 23 H D (7-17) mg/dL Creatinine 1.82 H (0.7-1.0) mg/dL Estim Creat Clear Calc Not Reportable Estimated GFR 27 L (59 - ) Glucose 112 H (65-110) mg/dL Calcium 10.1 (8.4-10.2) mg/dL Total Bilirubin 0.5 (0.2-1.3) mg/dL AST 36 (14-36) U/L ALT 27 (6-35) U/L Alkaline Phosphatase 205 H (38-126) U/L Troponin I < 0.012 (0.000-0.034) ng/mL Total Protein 8.1 (6.3-8.2) g/dL Albumin 4.1 (3.5-5.1) g/dL Imaging Data Radiologist's impression: ITS Impressions Head CT 01/13/25 17:47 IMPRESSION: 1. No acute intracranial abnormality. ECG Data EKG #1: ECG completion date: 01/13/25 ECG completion time: 14:33 EKG Interpretation: normal rate (70), no ectopy and LBBB Pacemaker function: normal pacer function Discharge Plan Discharge Clinical Impression: Dizziness Patient Disposition: Home Condition: Stable Instructions: Dizziness (ED) Additional Instructions: Continue home medication , drink more fluids , can drink ensure twice day which will give additional calories Patient Language: [place] Prescriptions: No Action amlodipine 5 mg tablet 5 mg PO DAILY atorvastatin [Lipitor] 80 mg tablet 80 mg PO DAILY cetirizine [24Hour Allergy] 10 mg tablet 10 mg PO DAILY PRN aspirin [Adult Low Dose Aspirin] 81 mg tablet,delayed release (DR/EC) 81 mg PO DAILY Digestive Advantage Advanced 10 billion cell capsule See Rx Instructions PO .QD Rx Instructions: 1 capsule orally QD; ascorbate calcium (vitamin C) 500 mg tablet 500 mg PO DAILY cholecalciferol (vitamin D3) 50 mcg (2,000 unit) capsule 100 mcg PO DAILY metoprolol succinate [Toprol XL] 50 mg tablet extended release 24 hr 100 mg PO DAILY Follow-up/Referrals: Rigoberto Robles MD [Primary Care Provider, [facility]] Time of Disposition: 18:08
== END 2025-01-13 18:30 | disposition home or self-care (01) ==
PROVIDERS: Emergency Provider Family Medicine; PCP Family Medicine
DX: R42 Dizziness and giddiness (principal); I48.91 Unspecified atrial fibrillation; I25.810 Atherosclerosis of coronary artery bypass graft(s) without angina pectoris; I12.9 Hypertensive chronic kidney disease with stage 1 through stage 4 chronic kidney disease, or unspecified chronic kidney disease; N18.30 Chronic kidney disease, stage 3 unspecified; I11.9 Hypertensive heart disease without heart failure; E78.5 Hyperlipidemia, unspecified; E55.9 Vitamin D deficiency, unspecified; Z95.2 Presence of prosthetic heart valve; G47.33 Obstructive sleep apnea (adult) (pediatric); Z95.0 Presence of cardiac pacemaker; Z96.651 Presence of right artificial knee joint; Z85.42 Personal history of malignant neoplasm of other parts of uterus; Z85.3 Personal history of malignant neoplasm of breast; Z90.79 Acquired absence of other genital organ(s); Z90.722 Acquired absence of ovaries, bilateral; Z79.82 Long term (current) use of aspirin; Z79.899 Other long term (current) drug therapy; I45.2 Bifascicular block; I51.7 Cardiomegaly
CPT/HCPCS: 36415; 70450; 80053; 84484; 85025; 93005; 96360; 96361; 99284; J7030